=== PATIENT | female | born 1955 ===

== ENCOUNTER 2020-05-30 16:22 | Outpatient (REF) | payer OTHER, SELFPAY ==
--- NOTE | 2020-05-30 16:30 | MM_ITS ---
EXAMINATION: MM SCREENING DIGITAL BREAST TOMOSYNTHESIS, BILATERAL CLINICAL INFORMATION: Screening. Asymptomatic. The lifetime risk of breast cancer based on the Tyrer-Cuzick Model is 4.7%. COMPARISON: Mammography: February 12, 2018 and studies dating back to October 26, 2010 TECHNIQUE: Digital breast tomosynthesis is performed in both the craniocaudal and mediolateral oblique views along with computer-aided detection (CAD). Synthesized 2D images are generated from the tomosynthesis. FINDINGS: The breasts are extremely dense, which lowers the sensitivity of mammography (ACR BI-RADS breast composition Category d). There are no significant masses, abnormal calcifications, or other abnormalities. MM/MM tomosynthesis screening BI IMPRESSION: There are no significant changes from prior study. ASSESSMENT: BI-RADS 1: Negative RECOMMENDATION: Routine annual mammography screening. This patient's information was entered into a reminder system with a target due date for their next mammogram.
== END 2020-05-30 16:23 | disposition home or self-care (01) ==
LOC: HO.MAMMO 16:22
PROVIDERS: Visit Provider Internal Medicine
DX: Z12.31 Encounter for screening mammogram for malignant neoplasm of breast (principal)
CPT/HCPCS: 77063; 77067

== ENCOUNTER 2020-08-23 09:47 | Emergency (ER) | payer OTHER, SELFPAY ==
[2020-08-23 10:18] VITALS: BP 113/58; PULSE 65; RESP 16; TEMP 36.3; O2SAT 99; BMI 27.4
--- NOTE | 2020-08-23 10:40 | XR_ITS ---
EXAMINATION: XR CHEST CLINICAL INFORMATION: Cough x1 week. COMPARISON: Chest 01/25/2019 TECHNIQUE: Frontal view of the chest was obtained. FINDINGS: No significant abnormality is noted involving the heart, lungs, mediastinum, bony thorax or soft tissues. XR/XR chest 1V IMPRESSION: Unremarkable chest examination.
--- NOTE | 2020-08-23 10:53 | ED_ITS ---
HPI - URI/Sore Throat General Chief Complaint: Upper Respiratory Symptoms Stated Complaint: sore throat body aches Time Seen by Provider: 08/23/20 10:21 Source: patient Mode of arrival: ambulatory Limitations: no limitations History of Present Illness HPI Narrative: 65yoF HTN, HLD, [place] Palsy and Depression presenting to the ED c c/o URI symptoms which includes body aches, sore throat and a dry cough for over a week and a half. Reports she was seen by her primary care provider approximately 1 week ago and was tested for COVID was negative. Reports someone she works with has a bronchitis possible pneumonia infection therefore she is concerned about bronchitis versus pneumonia at this time. Denies any fevers, dizziness, headaches, jaw pain, paresthesias, neck pain, neck stiffness, chest pain or shortness of breath, dyspnea on exertion, orthopnea, palpitations, any symptoms or any other symptom complaints or concerns at this time. Denies recent travel. Denies any other sick contacts. Related Data Previous Rx's Medication Instructions Recorded acetaminophen [Tylenol] 650 mg PO Q6H PRN #10 tab 08/23/20 albuterol sulfate 1 inh INHALATION QID PRN #18 g 08/23/20 azithromycin See Rx Instructions .ROUTE 08/23/20 .COMPLEX #6 tab cyclobenzaprine 10 mg PO TID PRN #10 tab 08/23/20 ibuprofen 800 mg PO Q8H PRN #14 tab 08/23/20 prednisone 40 mg PO DAILY 5 Days #10 tab 08/23/20 Allergies Allergy/AdvReac Type Severity Reaction Status Date / Time lisinopril [LISINOPRIL] Allergy Intermediate HIVES Unverified 04/26/20 15:42 Review of Systems Review of Systems: Constitutional : No Fever, + Chills, + fatigue, + Malaise ENT/Mouth : + sore throat, No runny nose Eyes: No Discharge Cardiovascular : No Chest Pain, No SOB Respiratory : + Cough, No Sputum, No Wheezing, No Smoke Exposure, No Dyspnea Gastrointestinal : No Nausea, No Vomiting, No Diarrhea Genitourinary : No irregular bleeding, No Dysuria, No Urinary Frequency, No Hematuria, No Urinary Incontinence, No Urgency, No Flank Pain, Musculoskeletal : + Myalgia Skin : No rash Neuro : No Headache Yes all other systems are reviewed and are negative [facility] Past Medical History Attestation statement: The following information was validated with the patient. Social History Social History Advance Directives: No Advance Directives Information Provided: No Physical Exam Vital Signs: Vital Signs: Last Vital Signs Temp 97.3 F 08/23/20 10:18 Pulse 65 08/23/20 10:18 Resp 16 08/23/20 10:18 BP 113/58 L 08/23/20 10:18 Pulse Ox 99 08/23/20 10:18 Body Mass Index 27.4 vital signs have been reviewed as normal and appeared to be correct. Blood pressure normal. Heart rate normal. Respiration rate normal. Temperature normal. Oxygen saturation normal. Appearance: Alert. Oriented X3. No acute distress. Head: Normal external exam. Normocephalic. Atraumatic. Eyes: PERRLA. EOMI. Conjunctiva and sclera normal. Eyelids normal. ENT: EAC normal. TM's Normal. Pharynx normal. Uvula midline. Moist mucous membranes. No trismus noted. No drooling noted. No muffled voice noted. Neck: Normal inspection. Neck supple. FROM. No adenopathy. No meningeal signs. CVS: Normal heart rate and rhythm. Heart sound normal. No murmurs noted. Pulses normal throughout. Respiratory: No respiratory distress. Painless inspiration. Breath sounds normal. No wheezes/rales/rhonchi noted. Chest nontender. No accessory muscle usage noted or decreased air movement noted. Back: Full range of motion noted. Skin: Skin warm and dry. Normal skin color. Normal skin turgor. No rashes/lesions/lacerations noted. Extremities: Extremities exhibit normal range of motion. Extremities nontender. Neuro: Oriented X 3. No motor deficit. No sensory deficit. Reflexes normal. Course Course Course Narrative: 65-year-old female presenting to the ED with URI like symptoms for the past week and a half. Had a negative COVID swab a week and half ago. Reports persistent sore throat, body aches and a dry cough. Chest x-ray obtained and negative for any acute processes. COVID/RSV/flu negative. Will DC home with antibiotics and symptomatic treatment along with instructions to self isolate and to return if any new or worsening symptoms. Patient understands agrees the plan. MDM - URI/Sore Throat Medical Records Attestation: I reviewed the patient's medical records. Lab Data Labs: Lab Results 08/23/20 Range/Units 10:27 Coronavirus (PCR) NEGATIVE (Negative) Influenza Type A (PCR) NEGATIVE (Negative) Influenza Type B (PCR) NEGATIVE (Negative) RSV RNA Qual (PCR) NEGATIVE (Negative) Imaging Data Chest x-ray: Attestation: I personally reviewed and interpreted this imaging study as follows: Radiologist's impression: FINDINGS: No significant abnormality is noted involving the heart, lungs, mediastinum, bony thorax or soft tissues. XR/XR chest 1V IMPRESSION: Unremarkable chest examination. Discharge Plan Discharge Clinical Impression: Upper respiratory infection Patient Disposition: Home, Self-Care Instructions: Upper Respiratory Infection (ED) Prescriptions: New acetaminophen [Tylenol] 325 mg tablet 650 mg PO Q6H PRN (Reason: fever or pain) Qty: 10 RF: 0 cyclobenzaprine 10 mg tablet 10 mg PO TID PRN (Reason: muscle spasm) Qty: 10 RF: 0 azithromycin 250 mg tablet See Rx Instructions .ROUTE .COMPLEX Qty: 6 RF: 0 ibuprofen 800 mg tablet 800 mg PO Q8H PRN (Reason: pain) Qty: 14 RF: 0 prednisone 20 mg tablet 40 mg PO DAILY 5 Days Qty: 10 RF: 0 albuterol sulfate 90 mcg/actuation HFA aerosol inhaler 1 inh inhalation QID PRN (Reason: shortness of breath or wheezing) Qty: 18 RF: 0 Referrals: Kamilla Reyes MD [Primary Care Provider] - 2 days Stand Alone Forms: Work/School Release Print Language: [place]
[2020-08-23 11:27] LABS: Influenza A PCR NEGATIVE (Negative); Influenza B PCR NEGATIVE (Negative); Resp Syncy Virus RNA Qual PCR NEGATIVE (Negative); SARS COV2 PCR INHOUSE NEGATIVE (Negative)
== END 2020-08-23 11:48 | disposition home or self-care (01) ==
PROVIDERS: Physician Assistant Medical; Emergency Provider Emergency Medicine Emergency Medical Services; PCP Internal Medicine
DX: J06.9 Acute upper respiratory infection, unspecified (principal); M79.10 Myalgia, unspecified site; R05 Cough; Z20.822 Contact with and (suspected) exposure to COVID-19
CPT/HCPCS: 0241U; 36415; 71045; 87071; 87147; 87880; 99283

== ENCOUNTER → 2020-09-20 15:15 | Outpatient (BNVA) | payer OTHER, SELFPAY | PROVIDERS: PCP Internal Medicine; Visit Provider Surgery ==

== ENCOUNTER → 2020-10-02 15:30 | Outpatient (BNVA) | payer OTHER, SELFPAY | PROVIDERS: PCP Internal Medicine; Visit Provider Internal Medicine Gastroenterology ==

== ENCOUNTER 2020-10-16 14:44 | Outpatient (REF) | payer OTHER, SELFPAY ==
--- NOTE | ~2020-10-16 | US_ITS ---
EXAMINATION: ULTRASOUND PELVIS COMPLETE. CLINICAL INFORMATION: Vaginal and rectal pain. COMPARISON: None TECHNIQUE: Transabdominal and transvaginal imaging of pelvis is performed. FINDINGS: The uterus is not visualized, status post hysterectomy. Right ovary measures 1.61 x 1.47 x 1.45 cm and volume 1.80 mL. It appears unremarkable. The left ovary measures 1.32 cm x 0.90 cm x 1.04 cm and volume 0.65 mL. It appears unremarkable. There is no adnexal mass seen. There is small amount of free fluid in the pelvis. US/US transvaginal IMPRESSION: 1. Uterus surgically removed. 2. The ovaries are unremarkable. 3. There is small amount of free fluid in the pelvis.
--- NOTE | ~2020-10-16 | US_ITS ---
EXAMINATION: ULTRASOUND PELVIS COMPLETE. CLINICAL INFORMATION: Vaginal and rectal pain. COMPARISON: None TECHNIQUE: Transabdominal and transvaginal imaging of pelvis is performed. FINDINGS: The uterus is not visualized, status post hysterectomy. Right ovary measures 1.61 x 1.47 x 1.45 cm and volume 1.80 mL. It appears unremarkable. The left ovary measures 1.32 cm x 0.90 cm x 1.04 cm and volume 0.65 mL. It appears unremarkable. There is no adnexal mass seen. There is small amount of free fluid in the pelvis. US/US pelvic complete IMPRESSION: 1. Uterus surgically removed. 2. The ovaries are unremarkable. 3. There is small amount of free fluid in the pelvis.
== END 2020-10-16 14:45 | disposition home or self-care (01) ==
LOC: HO.US 14:44
PROVIDERS: Visit Provider Internal Medicine Gastroenterology
DX: R10.2 Pelvic and perineal pain (principal); K62.89 Other specified diseases of anus and rectum; N81.9 Female genital prolapse, unspecified
CPT/HCPCS: 76830; 76856

== ENCOUNTER 2021-02-05 12:54 | Outpatient (REF) | payer OTHER, SELFPAY ==
[2021-02-06 09:08] LABS: BV Int Neg Control Negative (Negative); BV Int Pos Control Positive (Positive)
== END 2021-02-05 12:55 | disposition home or self-care (01) ==
LOC: HO.LAB 12:54
PROVIDERS: Visit Provider Obstetrics & Gynecology
DX: Z01.411 Encounter for gynecological examination (general) (routine) with abnormal findings (principal); R10.2 Pelvic and perineal pain
CPT/HCPCS: 87480; 87510; 87660

== ENCOUNTER 2021-09-27 15:48 | Outpatient (REF) | payer OTHER, SELFPAY ==
--- NOTE | ~2021-09-27 | MM_ITS ---
EXAMINATION: MM SCREENING DIGITAL BREAST TOMOSYNTHESIS, BILATERAL CLINICAL INFORMATION: Screening. Asymptomatic. The lifetime risk of breast cancer based on the Tyrer-Cuzick Model is 5%. COMPARISON: Mammography: 05/30/2020, 02/12/2018, 12/16/2016 TECHNIQUE: Digital breast tomosynthesis is performed in both the craniocaudal and mediolateral oblique views along with computer-aided detection (CAD). Synthesized 2D images are generated from the tomosynthesis. FINDINGS: The breasts are heterogeneously dense, which may obscure small masses (ACR BI-RADS breast composition Category c). There are no significant masses, abnormal calcifications, or other abnormalities. Parenchymal pattern is similar to prior studies. There is no developing density or architectural abnormality. The axilla and skin contours are unremarkable. No significant changes. MM/MM tomosynthesis screening BI IMPRESSION: No mammographic evidence of malignancy. ASSESSMENT: BI-RADS 1: Negative RECOMMENDATION: Routine annual mammography screening. This patient's information was entered into a reminder system with a target due date for their next mammogram.
== END 2021-09-27 15:49 | disposition home or self-care (01) ==
LOC: HO.MAMMO 15:48
PROVIDERS: PCP Internal Medicine; Visit Provider Internal Medicine
DX: Z12.31 Encounter for screening mammogram for malignant neoplasm of breast (principal)
CPT/HCPCS: 77063; 77067

== ENCOUNTER 2022-10-03 15:15 | Outpatient (REF) | payer OTHER, SELFPAY ==
--- NOTE | ~2022-10-03 | MM_ITS ---
EXAMINATION: MM SCREENING DIGITAL BREAST TOMOSYNTHESIS, BILATERAL CLINICAL INFORMATION: Screening. Asymptomatic. The lifetime risk of breast cancer based on the Tyrer-Cuzick Model is 4%. COMPARISON: Mammography: 09/27/2021, 2920, 02/12/2018, 12/16/2016 TECHNIQUE: Digital breast tomosynthesis is performed in both the craniocaudal and mediolateral oblique views along with computer-aided detection (CAD). Synthesized 2D images are generated from the tomosynthesis. FINDINGS: The breasts are heterogeneously dense, which may obscure small masses (ACR BI-RADS breast composition Category c). No architectural abnormality or developing density or significant change from prior studies. The axilla are unremarkable. There are no significant masses, abnormal calcifications, or other abnormalities. MM/MM tomosynthesis screening BI IMPRESSION: No mammographic evidence of malignancy. ASSESSMENT: BI-RADS 1: Negative RECOMMENDATION: Routine annual mammography screening. This patient's information was entered into a reminder system with a target due date for their next mammogram.
== END 2022-10-03 15:16 | disposition home or self-care (01) ==
LOC: HO.MAMMO 15:15
PROVIDERS: PCP Internal Medicine; Visit Provider Internal Medicine
DX: Z12.31 Encounter for screening mammogram for malignant neoplasm of breast (principal)
CPT/HCPCS: 77063; 77067

== ENCOUNTER 2022-10-26 12:12 | Emergency (ER) | payer OTHER, MEDICARE, SELFPAY ==
--- NOTE | ~2022-10-26 | XR_ITS ---
EXAMINATION: XR SHOULDER, LEFT CLINICAL INFORMATION: Pain in left shoulder COMPARISON: None available. TECHNIQUE: AP external rotation, Grashey, scapular Y, and axillary views of the left shoulder. FINDINGS: The bones are normal. No fracture. Glenohumeral and acromioclavicular alignment is anatomic with normal joint space. There is approximately 0.5 cm calcification in the soft tissues adjacent to the greater tuberosity most likely calcified tendinopathy or supraspinatus tendon. XR/XR shoulder LT min 2V IMPRESSION: Tendinopathy
[2022-10-26 12:24] VITALS: BP 116/56; PULSE 69; RESP 18; TEMP 36.4; O2SAT 97; BMI 27.2
--- NOTE | 2022-10-26 13:11 | ED.EXTPRO ---
HPI - Extremity Problem General Chief complaint: Extremity Injury, Upper Stated complaint: L Shoulder Pain No Injury Time Seen by Provider: 10/26/22 12:26 History of Present Illness HPI Narrative: Patient complains of left shoulder pain for 24 hours after lifting and extending her left arm overhead while playing with the child, no other injury no numbness weakness or tingling no neck pain no chest pain no shortness of breath no other extremity pains Related Data Home Medications Medication Instructions Recorded Confirmed aspirin 81 mg tablet,delayed 81 mg PO DAILY 09/20/20 09/20/20 release atorvastatin 40 mg tablet 40 mg PO DAILY 09/20/20 09/20/20 carvedilol 25 mg tablet 25 mg PO BID 09/20/20 09/20/20 enalapril maleate 20 mg tablet 20 mg PO BID 09/20/20 09/20/20 Previous Rx's Medication Instructions Recorded acetaminophen 325 mg tablet 650 mg PO Q6H PRN fever or pain 08/23/20 (Tylenol) #10 tabs albuterol sulfate 90 mcg/actuation 1 inh inhalation QID PRN shortness 08/23/20 aerosol inhaler of breath or wheezing #18 grams azithromycin 250 mg tablet See Rx Instructions PO .COMPLEX #6 08/23/20 tabs cyclobenzaprine 10 mg tablet 10 mg PO TID PRN muscle spasm #10 08/23/20 tabs ibuprofen 800 mg tablet 800 mg PO Q8H PRN pain #14 tabs 08/23/20 prednisone 20 mg tablet 40 mg PO DAILY rash 5 days #10 tabs 08/23/20 amitriptyline 10 mg tablet 10 mg PO BEDTIME #30 tabs 10/02/20 estradiol 0.01% (0.1 mg/gram) 1 appful vaginal DAILY #42.5 grams 02/06/21 vaginal cream acetaminophen 500 mg capsule 1,000 mg PO .T.i.d. PRN pain #30 10/26/22 caps Allergies Allergy/AdvReac Type Severity Reaction Status Date / Time lisinopril [LISINOPRIL] Allergy Intermediate HIVES Verified 09/20/20 15:23 [facility] Past Medical History Source: nursing notes reviewed Medical History (Updated 10/26/22 @ 13:16 by LORY Maguire) Anal pain Epigastric pain Type II diabetes mellitus Vaginal intraepithelial neoplasia grade 1 Surgical History (Updated 02/05/21 @ 10:21 by Noelle Marlow MD) History of cardiac catheterization History of hysterectomy for benign disease Social History Social History (Updated 10/02/20 @ 15:34 by Mandy Weiner CMA) Household Members: Children Alcohol intake: never Advance Directives: No Advance Directives Information Provided: No Current occupational status: employed Physical Exam Vital Signs: Vital Signs: Last Vital Signs Temp 97.6 F 10/26/22 12:24 Pulse 69 10/26/22 12:24 Resp 18 10/26/22 12:24 BP 116/56 L 10/26/22 12:24 Pulse Ox 97 10/26/22 12:24 O2 Del Method 10/26/22 12:24 BMI result Body Mass Index 27.2 General appearance no acute distress Head is normocephalic atraumatic Neck is supple nontender Chest wall nontender Lung exam is clear to auscultation bilateral Abdomen soft nontender Extremities the left shoulder had limited range of motion and tender now is across the anterior aspect of the shoulder there was no deformity no swelling no redness no ecchymosis Neurovascular intact distal Other extremities normal Skin no rashes Course Course Course Narrative: X-ray did not show any acute fractures or injuries but did show some calcified tendinitis and patient is advised to follow with orthopedist and well-appearing patient is discharged Discharge Plan Discharge Clinical Impression: Left shoulder tendinitis, Sprain of left shoulder Patient Disposition: Home, Self-Care Additional Instructions: Shoulder x-ray did not show any broken bone but it did show some calcified tendinitis which could of been irritated by the injury Follow with orthopedist, they may offer an injection if pain continues Return any concerns Limited use of sling as a few wear it all day for several days you could lose range of motion and muscle tone and it makes it harder to get better Prescriptions: New acetaminophen 500 mg capsule 1,000 mg PO .T.i.d. PRN (Reason: pain) Qty: 30 0RF No Action estradiol 0.01 % (0.1 mg/gram) cream 1 appful vaginal DAILY Qty: 42.5 11RF Rx Instructions: quse daily for 14 days; then use 2-3 times/week acetaminophen [Tylenol] 325 mg tablet 650 mg PO Q6H PRN (Reason: fever or pain) Qty: 10 0RF cyclobenzaprine 10 mg tablet 10 mg PO TID PRN (Reason: muscle spasm) Qty: 10 0RF azithromycin 250 mg tablet See Rx Instructions .ROUTE .COMPLEX Qty: 6 0RF Rx Instructions: take 500 mg today (day 1), then 250 mg for 4 days (days 2-5) ibuprofen 800 mg tablet 800 mg PO Q8H PRN (Reason: pain) Qty: 14 0RF prednisone 20 mg tablet 40 mg PO DAILY 5 Days Qty: 10 0RF albuterol sulfate 90 mcg/actuation HFA aerosol inhaler 1 inh inhalation QID PRN (Reason: shortness of breath or wheezing) Qty: 18 0RF enalapril maleate 20 mg tablet 20 mg PO BID aspirin 81 mg tablet,delayed release (DR/EC) 81 mg PO DAILY atorvastatin 40 mg tablet 40 mg PO DAILY carvedilol 25 mg tablet 25 mg PO BID amitriptyline 10 mg tablet 10 mg PO BEDTIME Qty: 30 2RF Referrals: Michael Butler MD [Physician] - (Left shoulder tendinitis, sprain) Stand Alone Forms: Work/School Release Interventions: ED Discharge Assessment Last Done: 10/26/22 13:33 Discharge Date/Time: 10/26/22 13:34
== END 2022-10-26 13:34 | disposition home or self-care (01) ==
PROVIDERS: Emergency Provider Emergency Medicine; PCP Internal Medicine
DX: M75.32 Calcific tendinitis of left shoulder (principal); M25.512 Pain in left shoulder; Z79.899 Other long term (current) drug therapy
CPT/HCPCS: 73030; 99283

== ENCOUNTER → 2022-11-14 11:40 | Outpatient (BNVA) | payer OTHER, MEDICARE, SELFPAY | PROVIDERS: PCP Internal Medicine; Visit Provider Physician Assistant | DX: Z13.89 Encounter for screening for other disorder (principal) ==

== ENCOUNTER 2023-01-31 07:06 | Emergency (ER) | payer OTHER, MEDICARE, SELFPAY ==
--- NOTE | ~2023-01-31 | CT_ITS ---
EXAMINATION: CT SINUS WITHOUT CONTRAST CLINICAL INFORMATION: Facial/maxillary cellulitis and tenderness. COMPARISON: CT and MR brain dated 01/25/2019. TECHNIQUE: Contiguous axial CT images of the sinuses were obtained without contrast. Sagittal and coronal reformats were provided and reviewed. This CT examination was performed using dose optimization techniques as appropriate, variously including the following: *Automated exposure control *Adjustment of mA and/or kV according to patient size (this includes techniques or standardized protocols for targeted exams where dose is matched to indication/reason for exam; i.e. extremities or head) *Use of iterative reconstruction technique DLP: 97 mGy-cm FINDINGS: Mild asymmetric skin thickening and subcutaneous edema overlying the right maxilla which could represent mild cellulitis. No organized fluid collection or abscess formation. The paranasal sinuses and mastoid air cells are well aerated. The osteomeatal complexes are open. The savage of the frontal, maxillary, ethmoid, and sphenoid sinuses are intact. The nasal septum is unremarkable. There is no fracture identified. The globes and retro-orbital fat are well preserved. The visualized portions of the brain parenchyma are unremarkable. CT/CT sinus wo IV con IMPRESSION: Mild asymmetric skin thickening and subcutaneous edema overlying the right maxilla which could represent mild cellulitis. No organized fluid collection or abscess formation.
[2023-01-31 07:12] VITALS: BP 143/74; PULSE 87; RESP 16; TEMP 36.1; O2SAT 97; BMI 29.0
--- NOTE | 2023-01-31 08:13 | ED_ITS ---
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 About a month ago patient started to have about a butterfly redness on both maxillary area that has been worsening for the past month today patient woke up with burning sensation to the maxillary area with redness and hotness. Related Data Home Medications Medication Instructions Recorded Confirmed aspirin 81 mg tablet,delayed 81 mg PO DAILY 09/20/20 09/20/20 release atorvastatin 40 mg tablet 40 mg PO DAILY 09/20/20 09/20/20 carvedilol 25 mg tablet 25 mg PO BID 09/20/20 09/20/20 enalapril maleate 20 mg tablet 20 mg PO BID 09/20/20 09/20/20 Previous Rx's Medication Instructions Recorded acetaminophen 325 mg tablet 650 mg PO Q6H PRN fever or pain 08/23/20 (Tylenol) #10 tabs albuterol sulfate 90 mcg/actuation 1 inh inhalation QID PRN shortness 08/23/20 aerosol inhaler of breath or wheezing #18 grams azithromycin 250 mg tablet See Rx Instructions PO .COMPLEX #6 08/23/20 tabs cyclobenzaprine 10 mg tablet 10 mg PO TID PRN muscle spasm #10 08/23/20 tabs ibuprofen 800 mg tablet 800 mg PO Q8H PRN pain #14 tabs 08/23/20 prednisone 20 mg tablet 40 mg PO DAILY rash 5 days #10 tabs 08/23/20 amitriptyline 10 mg tablet 10 mg PO BEDTIME #30 tabs 10/02/20 estradiol 0.01% (0.1 mg/gram) 1 appful vaginal DAILY #42.5 grams 02/06/21 vaginal cream acetaminophen 500 mg capsule 1,000 mg PO .T.i.d. PRN pain #30 10/26/22 caps doxycycline hyclate 100 mg tablet 100 mg PO BID #20 tabs 01/31/23 doxycycline hyclate 100 mg tablet 100 mg PO BID #20 tabs 01/31/23 prednisone 20 mg tablet 20 mg PO BID #6 tabs 01/31/23 prednisone 20 mg tablet 20 mg PO BID #6 tabs 01/31/23 Allergies Allergy/AdvReac Type Severity Reaction Status Date / Time lisinopril [LISINOPRIL] Allergy Intermediate HIVES Verified 11/14/22 12:33 Review of Systems Review of Systems: All other systems are reviewed and are negative Constitutional: Reports as per HPI and Reports no additional constitutional complaints Eyes: Reports as per HPI and Reports no additional eye complaints Reports system reviewed and no additional complaints, except as documented Cardiovascular: Reports as per HPI and Reports no additional cardiovascular complaints Respiratory: Reports as per HPI and Reports no additional respiratory complaints Gastrointestinal: Reports as per HPI and Reports no additional gastrointestinal complaints Genitourinary: Reports no additional female genitourinary complaints Musculoskeletal: Reports no additional musculoskeletal complaints Skin/Breast: Reports system reviewed and no additional complaints, except as do cu Psychiatric: Reports no additional psychiatric complaints Endocrine: Reports no additional endocrine complaints Hematologic/Lymphatic: Reports no additional hematologic/lymphatic complaints Allergic/Immunologic: Reports no additional allergic/immunologic complaints Reports system reviewed and no additional complaints, except as documented and Reports Abnormal speech present [facility] Past Medical History Medical History Anal pain Epigastric pain Type II diabetes mellitus Vaginal intraepithelial neoplasia grade 1 Surgical History History of cardiac catheterization History of hysterectomy for benign disease Social History Social History Household Members: Children Alcohol intake: never Smoked in Last 30 Days: No Use of substances other than those prescribed or required for medical reasons: No Advance Directives: No Advance Directives Information Provided: No Current occupational status: employed Physical Exam ED Vital Signs: Vital Signs - 24 hr 01/31/23 07:12 Temperature 97.0 F Pulse Rate 87 Respiratory Rate 16 Blood Pressure 143/74 H Pulse Oximetry 97 Oxygen Delivery Method Room Air BMI result Body Mass Index 29.0 Vital signs have been reviewed as appeared to be correct. Blood pressure normal. Heart rate normal. Respiration rate normal. Temperature normal. Oxygen saturation normal. Appearance: Alert. Oriented X3. No acute distress. Head: Normal external exam. Normocephalic. Atraumatic. Area of redness, hotness, tenderness to touch on both maxillary area, bilateral maxillary sinuses tenderness to percussion, no nasal discharge. Patent airway, no stridor, no throat swelling. Eyes: PERRLA. EOMI. Conjunctiva and sclera normal. Eyelids normal. ENT: TM's Normal. Pharynx normal. Uvula midline. Moist mucous membranes. No trismus noted. No drooling noted. No muffled voice noted. Neck: Normal inspection. Neck supple. FROM. No adenopathy. Thyroid Normal. No meningeal signs. No neck mass noted. CVS: Normal heart rate and rhythm. Heart sound normal. No murmurs noted. Pulses normal throughout. Respiratory: No respiratory distress. Painless inspiration. Breath sounds normal. No wheezes/rales/rhonchi noted. Chest nontender. No accessory muscle usage noted or decreased air movement noted. Abdomen: Soft and nontender. Bowel sounds normal in all 4 quadrants. No distention noted. No organomegaly noted. No visible injury noted. Back: No CVA tenderness. Full range of motion noted. Skin: Skin warm and dry. Normal skin color. Normal skin turgor. No rashe s/lesions/lacerations noted. Extremities: No lower extremity edema. Extremities exhibit normal range of motion. Extremities nontender. Neuro: Oriented X 3. Cranial nerve exam: II-XII are grossly intact No motor deficit. No sensory deficit. Reflexes normal. Course Course Course Narrative: 67-year-old female came in with facial cellulitis, start the patient on doxycycline and few days of prednisone. Medical Decision Making Differential Diagnosis Differential Diagnoses: The differential diagnosis associated with the presentation includes (Facial cellulitis, sinusitis, sepsis.) Admission/Observation Consideration of admission/observation: Escalation of care including admission/observation considered Lab Data [facility] Lab Attestation statement: I reviewed the patient's lab results. 01/31/23 08:33 01/31/23 08:33 Labs: Lab Results 01/31/23 01/31/23 01/31/23 Range/Units 08:33 08:33 08:33 WBC 9.0 (4.8-10.8) X10*3/uL RBC 4.26 (4.20-5.50) X10*6/uL Hgb 12.9 (12.0-16.0) g/dl Hct 38.2 (37.0-47.0) % MCV 89.7 (80.0-98.0) fL MCH 30.3 (27.0-33.0) pg MCHC 33.8 (31.0-35.0) g/dl RDW 11.6 (11.0-16.0) % Plt Count 232 (160-400) X10*3/uL MPV 10.1 (9.4-12.3) fL Immature Gran % (Auto) 0.3 (0.0-0.4) % Neut % (Auto) 50.1 (45-73) % Lymph % (Auto) 35.8 (20-40) % [place] % (Auto) 8.3 (2-11) % Eos % (Auto) 5.2 H (0-4) % Baso % (Auto) 0.3 (0-2) % Lymph # (Auto) 3.2 (1.2-4.9) X10*3/uL [place] # (Auto) 0.8 (0.1-1.2) X10*3/uL Eos # (Auto) 0.5 H (0.0-0.4) X10*3/uL Baso # (Auto) 0.0 (0.0-0.2) X10*3/uL Abs Immat Gran (auto) 0.03 (0.00-0.03) X10*3/uL Absolute Neuts (auto) 4.5 (2.0-8.3) x10*3/uL Absolute Nucleated RBC 0.000 (0.0-0.012) X10*3/uL Nucleated RBC % (auto) 0.0 (0.0-0.2) /100WBC ESR 10 (0-20) MM/HR Sodium 139 (135-145) mmol/L Potassium 4.2 (3.3-5.1) mmol/L Chloride 102 (96-108) mmol/L Carbon Dioxide 30 H (22-29) mmol/L Anion Gap 11 L (12-20) BUN 16 (9-16) mg/dL Creatinine 1.06 (0.5-1.4) mg/dL Estim Creat Clear Calc 49.1 Estimated GFR 52 Random Glucose 349 H (60-115) mg/dL Calcium 9.9 (8.4-10.2) mg/dL C-Reactive Protein < 0.04 (< or = 0.50) mg/dL Independent Interpretation I performed an independent interpretation of an: CT Scan (Face: Possible cellulitis.) Radiology Impression Discussion of test interpretation with radiology: I have reviewed the radiologist's reading. Discharge Plan Discharge Clinical Impression: Cellulitis of face Patient Disposition: Home, Self-Care Instructions: Cellulitis (ED) Prescriptions: New doxycycline hyclate 100 mg tablet 100 mg PO BID Qty: 20 0RF prednisone 20 mg tablet 20 mg PO BID Qty: 6 0RF doxycycline hyclate 100 mg tablet 100 mg PO BID Qty: 20 0RF prednisone 20 mg tablet 20 mg PO BID Qty: 6 0RF No Action estradiol 0.01 % (0.1 mg/gram) cream 1 appful vaginal DAILY Qty: 42.5 11RF Rx Instructions: quse daily for 14 days; then use 2-3 times/week acetaminophen [Tylenol] 325 mg tablet 650 mg PO Q6H PRN (Reason: fever or pain) Qty: 10 0RF cyclobenzaprine 10 mg tablet 10 mg PO TID PRN (Reason: muscle spasm) Qty: 10 0RF azithromycin 250 mg tablet See Rx Instructions .ROUTE .COMPLEX Qty: 6 0RF Rx Instructions: take 500 mg today (day 1), then 250 mg for 4 days (days 2-5) ibuprofen 800 mg tablet 800 mg PO Q8H PRN (Reason: pain) Qty: 14 0RF prednisone 20 mg tablet 40 mg PO DAILY 5 Days Qty: 10 0RF albuterol sulfate 90 mcg/actuation HFA aerosol inhaler 1 inh inhalation QID PRN (Reason: shortness of breath or wheezing) Qty: 18 0RF acetaminophen 500 mg capsule 1,000 mg PO .T.i.d. PRN (Reason: pain) Qty: 30 0RF enalapril maleate 20 mg tablet 20 mg PO BID aspirin 81 mg tablet,delayed release (DR/EC) 81 mg PO DAILY atorvastatin 40 mg tablet 40 mg PO DAILY carvedilol 25 mg tablet 25 mg PO BID amitriptyline 10 mg tablet 10 mg PO BEDTIME Qty: 30 2RF Referrals: Kamilla Reyes MD [Primary Care Provider] -
[2023-01-31 08:40] LABS: MANUAL DIFF FLAG NO
[2023-01-31 08:43] LABS: Basophils Percent Auto 0.3 % (0-2); Eosinophils Absolute Auto 0.5 X10*3/uL (0.0-0.4); Eosinophils Percent Auto 5.2 % (0-4); Hematocrit 38.2 % (37.0-47.0); Hemoglobin 12.9 g/dl (12.0-16.0); Imm Gran Abs Auto 0.03 X10*3/uL (0.00-0.03); Imm Gran Pct Auto 0.3 % (0.0-0.4); Lymphocytes Absolute Auto 3.2 X10*3/uL (1.2-4.9); Lymphocytes Percent Auto 35.8 % (20-40); Mean Corpuscular HGB Conc 33.8 g/dl (31.0-35.0); Mean Corpuscular Hemoglobin 30.3 pg (27.0-33.0); Mean Corpuscular Volume 89.7 fL (80.0-98.0); Mean Platelet Volume 10.1 fL (9.4-12.3); Monocytes Absolute Auto 0.8 X10*3/uL (0.1-1.2); Monocytes Percent Auto 8.3 % (2-11); Neutrophils Absolute Auto 4.5 x10*3/uL (2.0-8.3); Neutrophils Percent Auto 50.1 % (45-73); Platelet Count 232 X10*3/uL (160-400); Red Blood Count 4.26 X10*6/uL (4.20-5.50); Red Cell Distribution Width 11.6 % (11.0-16.0)
[2023-01-31 08:58] LABS: Anion Gap 11 (12-20); Blood Urea Nitrogen 16 mg/dL (9-16); C Reactive Protein < 0.04 mg/dL (< or = 0.50); Calcium 9.9 mg/dL (8.4-10.2); Carbon Dioxide 30 mmol/L (22-29); Chloride 102 mmol/L (96-108); Creatinine Clr Calc Pharmacy 49.1; Estimated Glomerular Filt Rate 52; Glucose Random 349 mg/dL (60-115); Potassium 4.2 mmol/L (3.3-5.1); Sodium 139 mmol/L (135-145)
[2023-01-31 09:28] LABS: Erythrocyte Sedimentation Rate 10 MM/HR (0-20)
[2023-01-31 11:18] VITALS: BP 136/70; PULSE 58; RESP 16; TEMP 37.1; O2SAT 100
[2023-01-31] MEDS: predniSONE 20 MG TABLET 40 MG PO (11:19)
[2023-01-31] MEDS: Doxycycline Monohydrate 100 MG CAPSULE PO (11:19)
== END 2023-01-31 11:42 | disposition home or self-care (01) ==
PROVIDERS: Emergency Provider Emergency Medicine; PCP Internal Medicine
DX: L03.211 Cellulitis of face (principal); E11.9 Type 2 diabetes mellitus without complications; I10 Essential (primary) hypertension; E78.5 Hyperlipidemia, unspecified; Z79.82 Long term (current) use of aspirin; Z79.02 Long term (current) use of antithrombotics/antiplatelets; Z79.899 Other long term (current) drug therapy
CPT/HCPCS: 36415; 70486; 80048; 85025; 85652; 86140; 99284

== ENCOUNTER 2023-02-09 09:51 | Inpatient (IN) | payer OTHER, MEDICARE, SELFPAY ==
[2023-02-09] VITALS (10 sets, daily range): BP systolic 98–155; BP diastolic 54–84; PULSE 55–69; RESP 13–18; TEMP 35.6–36.8; O2SAT 95–98; BMI 27.1; BMI 28.6; BMI 27.3
--- NOTE | 2023-02-09 10:01 | PC.NURSE ---
Pt. 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
--- NOTE | 2023-02-09 10:16 | PC.NURSE ---
Pt. denies severe CP at this time. States that pain got much better after receiving 324 ASA per EMS en route to ED today.
--- NOTE | 2023-02-09 10:53 | ED.CHESTPAIN ---
HPI - Chest Pain General Chief Complaint: Chest Pain Stated Complaint: chest pain Time Seen by Provider: 02/09/23 10:53 Source: patient, EMS, RN notes reviewed and old records reviewed Mode of arrival: EMS History of Present Illness HPI narrative: 67-year-old female with a past medical history of diabetes, CAD s/p stent placement on aspirin/Plavix, presenting to the ED complaining of substernal chest pain radiating to neck since 08:00 with associated lightheadedness/dizziness and fatigue. Admits was doing things around her house when pain began, with mild SOB. Received 325 mg of ASA by EMS with symptomatic improvement. Reports mild discomfort at present. Denies nausea, vomiting, focal weakness, headache, pedal edema MD complaint: chest pain Related Data Home Medications Medication Instructions Recorded Confirmed aspirin 81 mg tablet,delayed 81 mg PO DAILY 09/20/20 02/09/23 release atorvastatin 40 mg tablet 40 mg PO BEDTIME 09/20/20 02/09/23 carvedilol 25 mg tablet 25 mg PO BID 09/20/20 02/09/23 enalapril maleate 20 mg tablet 20 mg PO BID 09/20/20 02/09/23 cholecalciferol (vitamin D3) 25 25 mcg PO DAILY 02/09/23 02/09/23 mcg (1,000 unit) capsule (Vitamin D3) doxycycline hyclate 100 mg tablet 100 mg PO BID 02/09/23 02/09/23 insulin lispro protamine-lispro 40 unit subcut BIDWM 02/09/23 02/09/23 100 unit/mL (75-25) subcutaneous pen (Humalog Mix 75-25 KwikPen) prednisone 20 mg tablet 20 mg PO BID 02/09/23 02/09/23 Previous Rx's Medication Instructions Recorded albuterol sulfate 90 mcg/actuation 1 inh inhalation QID PRN shortness 08/23/20 aerosol inhaler of breath or wheezing #18 grams Allergies Allergy/AdvReac Type Severity Reaction Status Date / Time lisinopril [LISINOPRIL] Allergy Intermediate HIVES Verified 11/14/22 12:33 Review of Systems Review of Systems: Constitutional: No Fever, No Chills, No Fatigue, No Malaise ENT/Mouth: No Ear Pain, No Nasal Congestion, No sore throat, No Rhinorrhea, No Swallowing Difficulty Eyes: No Eye Pain, No Swelling, No Redness, No Vision Changes Cardiovascular: + Chest Pain, + SOB, No Edema, No Palpitations Respiratory: No Cough, No Sputum, No Wheezing, No Dyspnea Gastrointestinal: No Nausea, No Vomiting, No Diarrhea, No Constipation, No Abdominal pain Genitourinary: No Dysuria, No Urinary Frequency, No Flank Pain, No Urinary Flow Changes, No Hesitancy Musculoskeletal: No joint pain, No Myalgias, No Joint Swelling Skin: No Skin Lesions, No rash Neuro: No Weakness, No Numbness, No Paresthesias, No Loss of Consciousness, No Dizziness, No Headache Yes all other systems are reviewed and are negative Constitutional: Constitutional: Reports as per [facility] Past Medical History Attestation statement: The following information was validated with the patient. Source: old records reviewed Medical History (Updated 02/09/23 @ 17:46 by Sulema Munson NP) Anal pain Coronary artery disease Epigastric pain Type II diabetes mellitus Vaginal intraepithelial neoplasia grade 1 Surgical History (Updated 02/09/23 @ 17:46 by Sulema Munson NP) History of cardiac catheterization History of hysterectomy for benign disease Family History Family History (Updated 02/10/23 @ 10:51 by Chuy Mayo MD) Father Diabetes Social History Social History Household Members: Children Household Members Other:: 2 Housing: Apartment Do you presently have visiting nurse or other home services: No Alcohol intake: never Patient Tobacco Use Status: Never used Tobacco Smoked in Last 30 Days: No Use of substances other than those prescribed or required for medical reasons: No Currently Displaying Signs/Symptoms of Drug Intoxication Withdrawal: No Have you been hit, kicked, punched, or otherwise hurt by someone within the past year? If so, by whom?: No Do you feel safe in your current relationship?: No Current Relationship Is there a partner from a previous relationship who is making you feel unsafe now?: No Are you made to feel afraid or neglected: No Advance Directives: No Advance Directives Information Provided: Yes Do you have thoughts of harming others: None Do you have a plan to hurt others: No Plan Recently lost weight without trying: No Eating poorly because of decreased appetite: No Nutrition Risks: No Nutritional Risk Patient : No : No Poor oral hygiene: No Current occupational status: employed Physical Exam Vital Signs: Vital Signs: Last Vital Signs Temp 97.5 F 02/10/23 08:00 Pulse 69 02/10/23 08:00 Resp 20 02/10/23 08:00 BP 99/59 L 02/10/23 08:00 Pulse Ox 96 02/10/23 08:00 O2 Del Method Room Air 02/10/23 08:00 BMI result Body Mass Index 28.6 Const: General: cooperative, healthy appearing and no acute distress Orientation/consciousness: patient oriented x3 Limitations: no limitations HEENT: Head: Yes normal to inspection and Yes atraumatic Ears: hearing grossly normal bilaterally General nose exam: Normal external nose present Face and sinus: Yes normal facial exam Eyes: General: appearance normal, both eyes and all related structures EOM: EOMs intact bilaterally Neck: Neck: Yes normal visual inspection and Yes no meningeal signs Chest: Chest palpation & inspection: normal inspection of the chest Resp: Effort & Inspection: normal respiratory effort and no respiratory distress Auscultation: clear to auscultation bilaterally, no crackles and no wheezes Cardio: Rate: regular rate Heart sounds: S1 normal heart sound present and S2 normal heart sound present GI: Inspection: Yes normal to inspection Palpation (GI): Soft to palpation, nontender, no guarding and not rigid : General: Yes no CVA tenderness Back/Spine/Pelvis: Back: no CVA tenderness Skin: Rashes: no rashes Wounds: no wounds Neuro: General: patient oriented x3, tone normal and no meningeal signs Gait exam (Neuro): Normal gait present Extrem: General: Yes normal to inspection, Yes no pedal edema and Yes no calf tenderness Course Course Course Narrative: -1507--mild leukocytosis of 13.7. BUN acutely elevated to 33. Initial glucose 459 > repeat 258 after 1L IV after XR chest 1V IMPRESSION: No acute cardiopulmonary process. -1515--initial troponin 8.1 > repeat 51.4 >> upon re-evaluation patient denies CP at present, reports symptomatic improvement. Will consult Cardiology, Dr. Braxton >> cardiology recommended heparin and admission. Patient with history of mid LAD stent in 2007 at [facility]. Case discussed with hospitalist, admitted for further management Medications Administered Generic Name Dose Route Start Last Admin Trade Name Freq PRN Reason Stop Dose Admin Aspirin 81 mg 02/10/23 09:00 02/10/23 08:21 Aspirin Enteric Coated 81 Mg Tablet.Dr PO 81 mg DAILY HILDA Administration Atorvastatin Calcium 40 mg 02/09/23 21:00 02/09/23 21:39 Atorvastatin Calcium 40 Mg Tablet PO 40 mg BEDTIME HILDA Administration Carvedilol 25 mg 02/09/23 21:00 02/10/23 08:16 Carvedilol 25 Mg Tablet PO Not Given BID [facility] Protocol Enalapril Maleate 20 mg 02/09/23 21:00 02/09/23 21:39 Enalapril Maleate 10 Mg Tablet PO 20 mg BID HILDA Administration Protocol Heparin Sodium/Sodium Chloride 25,000 unit in 250 mls @ 0 mls/hr 02/09/23 16:00 02/10/23 07:33 Heparin Sodium,Porcine/1/2ns IVCONT 10 units/kg/hr .Q0M HILDA 7.09 mls/hr Titration Protocol Per Protocol Insulin Human Lispro 0 unit 02/09/23 16:30 02/10/23 08:21 Insulin Lispro 100 Unit/Ml 3 Ml Vial SUBCUT 4 unit QIDACHS [facility] Administration Protocol Sodium Chloride 3 ml 02/09/23 16:00 02/10/23 08:22 0.9 % Sodium Chloride Flush 3 Ml Syringe IVFLUSH Not Given QSHIFT [facility] Vitamin D 25 mcg 02/10/23 09:00 02/10/23 08:20 Cholecalciferol (Vitamin D3) 25 Mcg Tablet PO 25 mcg DAILY HILDA Administration Discontinued Medications Generic Name Dose Route Start Last Admin Trade Name Freq PRN Reason Stop Dose Admin Aspirin 81 mg 02/09/23 18:15 02/09/23 18:24 Aspirin 81 Mg Tab.Chew PO 02/09/23 18:16 Not Given ONCE ONE Heparin Sodium (Porcine) 4,000 unit 02/09/23 15:47 02/09/23 16:03 Heparin Sodium,Porcine 5,000 Unit/Ml Vial IVPUSH 02/09/23 15:48 4,000 unit ONCE ONE Administration Sodium Chloride 1,000 mls @ 999 mls/hr 02/09/23 11:15 02/09/23 16:23 Ns IV 02/09/23 12:15 Infused .Q1H1M HILDA Infusion Medical Decision Making Medical Decision Making MDM Narrative: 67-year-old female with a past medical history of diabetes, CAD s/p stent placement on aspirin/Plavix, presenting to the ED complaining of substernal chest pain radiating to neck since 08:00 with associated lightheadedness/dizziness and fatigue. On exam vital signs stable, NAD, nontoxic appearing, reports symptomatic improvement at present. Concern for ACS. Lower suspicion for PE/CHF or DVT. Unlikely dissection Plan: EKG, labs, CXR Please refer to course for remaining clinical decision making, interpretation of labs/imaging results, and discussions with consultants and/or family members. Differential Diagnosis Differential Diagnoses: The differential diagnosis associated with the presentation includes As above Admission/Observation Consideration of admission/observation: Escalation of care including admission/observation considered Consult Healthcare Provider Management of the patient was discussed with: Hospitalist and House Director (Cardiology, Dr. Braxton) Lab Data MDM Lab Attestation statement: I reviewed the patient's lab results. 02/09/23 10:11 02/09/23 10:11 Labs: Lab Results 02/09/23 02/09/23 02/09/23 Range/Units 10:11 10:11 10:11 WBC 13.7 H (4.8-10.8) X10*3/uL RBC 4.45 (4.20-5.50) X10*6/uL Hgb 13.6 (12.0-16.0) g/dl Hct 40.1 (37.0-47.0) % MCV 90.1 (80.0-98.0) fL MCH 30.6 (27.0-33.0) pg MCHC 33.9 (31.0-35.0) g/dl RDW 11.9 (11.0-16.0) % Plt Count 278 (160-400) X10*3/uL MPV 10.7 (9.4-12.3) fL Immature Gran % (Auto) 0.4 (0.0-0.4) % Neut % (Auto) 70.7 (45-73) % Lymph % (Auto) 22.1 (20-40) % [place] % (Auto) 6.6 (2-11) % Eos % (Auto) 0.1 (0-4) % Baso % (Auto) 0.1 (0-2) % Lymph # (Auto) 3.0 (1.2-4.9) X10*3/uL [place] # (Auto) 0.9 (0.1-1.2) X10*3/uL Eos # (Auto) 0.0 (0.0-0.4) X10*3/uL Baso # (Auto) 0.0 (0.0-0.2) X10*3/uL Abs Immat Gran (auto) 0.06 H (0.00-0.03) X10*3/uL Absolute Neuts (auto) 9.7 H (2.0-8.3) x10*3/uL Absolute Nucleated RBC 0.000 (0.0-0.012) X10*3/uL Nucleated RBC % (auto) 0.0 (0.0-0.2) /100WBC Sodium 132 L (135-145) mmol/L Potassium 4.1 (3.3-5.1) mmol/L Chloride 97 (96-108) mmol/L Carbon Dioxide 23 (22-29) mmol/L Anion Gap 16 (12-20) BUN 33 H (9-16) mg/dL Creatinine 1.37 (0.5-1.4) mg/dL Estim Creat Clear Calc 36.7 Estimated GFR 39 POC Glucose (60-115) mg/dL Random Glucose 459 H* (60-115) mg/dL Calcium 10.1 (8.4-10.2) mg/dL Magnesium 1.9 (1.6-2.6) mg/dL Total Bilirubin 1.2 H (0.0-1.0) mg/dL Direct Bilirubin 0.3 (0.0-0.5) mg/dL AST 12 (5-31) U/L ALT 25 (0-31) U/L Alkaline Phosphatase 120 H (39-117) U/L Troponin I High Sens 8.1 (<3.5-17.0) ng/L B-Natriuretic Peptide (<100) pg/mL Total Protein 7.3 (6.5-8.0) g/dL Albumin 3.9 (3.5-5.0) g/dL 02/09/23 02/09/23 02/09/23 Range/Units 10:11 12:21 14:22 WBC (4.8-10.8) X10*3/uL RBC (4.20-5.50) X10*6/uL Hgb (12.0-16.0) g/dl Hct (37.0-47.0) % MCV (80.0-98.0) fL MCH (27.0-33.0) pg MCHC (31.0-35.0) g/dl RDW (11.0-16.0) % Plt Count (160-400) X10*3/uL MPV (9.4-12.3) fL Immature Gran % (Auto) (0.0-0.4) % Neut % (Auto) (45-73) % Lymph % (Auto) (20-40) % [place] % (Auto) (2-11) % Eos % (Auto) (0-4) % Baso % (Auto) (0-2) % Lymph # (Auto) (1.2-4.9) X10*3/uL [place] # (Auto) (0.1-1.2) X10*3/uL Eos # (Auto) (0.0-0.4) X10*3/uL Baso # (Auto) (0.0-0.2) X10*3/uL Abs Immat Gran (auto) (0.00-0.03) X10*3/uL Absolute Neuts (auto) (2.0-8.3) x10*3/uL Absolute Nucleated RBC (0.0-0.012) X10*3/uL Nucleated RBC % (auto) (0.0-0.2) /100WBC Sodium (135-145) mmol/L Potassium (3.3-5.1) mmol/L Chloride (96-108) mmol/L Carbon Dioxide (22-29) mmol/L Anion Gap (12-20) BUN (9-16) mg/dL Creatinine (0.5-1.4) mg/dL Estim Creat Clear Calc Estimated GFR POC Glucose 258 H (60-115) mg/dL Random Glucose (60-115) mg/dL Calcium (8.4-10.2) mg/dL Magnesium (1.6-2.6) mg/dL Total Bilirubin (0.0-1.0) mg/dL Direct Bilirubin (0.0-0.5) mg/dL AST (5-31) U/L ALT (0-31) U/L Alkaline Phosphatase (39-117) U/L Troponin I High Sens 51.4 H* D (<3.5-17.0) ng/L B-Natriuretic Peptide 27 (<100) pg/mL Total Protein (6.5-8.0) g/dL Albumin (3.5-5.0) g/dL Independent Interpretation I performed an independent interpretation of an: EKG (EKG sinus bradycardia at a rate of 59. QRS 100. QTC 407. No significant change when compared to priors) Radiology Impression Discussion of test interpretation with radiology: I have reviewed the radiologist's reading. Independent Historian Clinical information obtained from an independent historian. History obtained from or confirmed by: EMS External Record Review External record reviewed: Inpatient record, Office record, Outpatient record, Prior outpatient labs, Prior outpatient radiology, Primary care record and Outside ED record Tests considered The following testing was considered but not selected: As above Chronic Conditions Patient?s care impacted by: Hypertension Critical Care Time Critical Care Time Critical Care Time: Yes Total Critical Care Time: 45 Attestation: I have personally provided critical care time exclusive of time spent on separately billable procedures. Time includes review of lab data, radiology results, discussion with consultants, and monitoring for potential decompensation. Intervention performed as documented. Discharge Plan Discharge Clinical Impression: Non-ST elevation NC (NSTEMI) Patient Disposition: Admitted As Inpatient Interventions: Admission Worksheet (ED) Last Done: 02/09/23 17:10 Discharge Date/Time: 02/09/23 17:30
[2023-02-09 12:07] LABS: B Type Natriuretic Peptide 27 pg/mL (<100)
--- NOTE | 2023-02-09 15:34 | PM.IMHP ---
History of Present Illness Date of Service: 02/09/23 Chief Complaint: Chest pain 67 year old women with hx of CAD, HTN and DM presenting with chest pain that started this morning. She reported that she was in the kitchen preparing breakfast and she felt a pain in the left side of her chest with no radiation but did report nausea and episode of vomiting as well as shortness of breath lasting about 20 minutes. She does have a history of LAD stent in the 90s but had not had any issues cardiac andre since then. She denied any fever, nausea, recent travel, sick contacts. She reported that from time to time she does get this chest pain usually with activity but is self-limiting in comes and goes. In the ER, CXR showed no consolidation. Initial troponin 51.4 with resolution of chest pain 3. She was started on IV heparin drip in the ED and had one liter of IV fluid. She will be admitted for treatment of NSTEMI. Review of Systems Review of Systems: Denies any recent fever chills or decrease in appetite respiratory denies any shortness of breath coverage production cardiovascular See HPI gastrointestinal denies any dysphagia abdominal pain nausea vomiting or diarrhea genitourinary denies any dysuria frequency or hematuria musculoskeletal denies any joint pain or swelling neuropsych denies any weakness or seizures all other systems reviewed are negative [facility] Medical History (Updated 02/09/23 @ 17:46 by Sulema Munson NP) Anal pain Coronary artery disease Epigastric pain Type II diabetes mellitus Vaginal intraepithelial neoplasia grade 1 Surgical History (Updated 02/09/23 @ 17:46 by Sulema Munson NP) History of cardiac catheterization History of hysterectomy for benign disease Social History Household Members: Children Alcohol intake: never Patient Tobacco Use Status: Never used Tobacco Smoked in Last 30 Days: No Use of substances other than those prescribed or required for medical reasons: No Advance Directives: No Advance Directives Information Provided: Yes Nutrition Risks: No Nutritional Risk Current occupational status: employed Meds Allergies Allergy/AdvReac Type Severity Reaction Status Date / Time lisinopril [LISINOPRIL] Allergy Intermediate HIVES Verified 11/14/22 12:33 Home Medications Medication Instructions Recorded Confirmed Last Taken Type aspirin 81 mg tablet,delayed 81 mg PO DAILY 09/20/20 02/09/23 02/09/23 History release atorvastatin 40 mg tablet 40 mg PO BEDTIME 09/20/20 02/09/23 02/08/23 History carvedilol 25 mg tablet 25 mg PO BID 09/20/20 02/09/23 02/09/23 History enalapril maleate 20 mg tablet 20 mg PO BID 09/20/20 02/09/23 02/09/23 History cholecalciferol (vitamin D3) 25 25 mcg PO DAILY 02/09/23 02/09/23 02/09/23 History mcg (1,000 unit) capsule (Vitamin D3) doxycycline hyclate 100 mg tablet 100 mg PO BID 02/09/23 02/09/23 02/09/23 History insulin lispro protamine-lispro 40 unit subcut BIDWM 02/09/23 02/09/23 02/09/23 History 100 unit/mL (75-25) subcutaneous pen (Humalog Mix 75-25 KwikPen) prednisone 20 mg tablet 20 mg PO BID 02/09/23 02/09/23 02/09/23 History Physical Exam Vital Signs and Narrative: Vital Signs: Last Vital Signs Temp 98.3 F 02/09/23 10:00 Pulse 59 02/09/23 14:58 Resp 13 02/09/23 14:58 BP 155/76 H 02/09/23 14:58 Pulse Ox 95 02/09/23 14:58 O2 Del Method Room Air 02/09/23 14:58 BMI result Body Mass Index 27.1 Appearing in no acute distress head is normocephalic atraumatic eyes pupils are PERRLA sclera is anicteric mouth throat mucous membranes are intact and moist neck is supple no lymphadenopathy, no JVD noted lung sounds are clear to auscultation heart regular rate rhythm, clear S1, S2 positive bowel sounds, abdomen is soft, nontender neuro patient is alert x3, no focal deficits Results Labs 02/09/23 10:11 02/09/23 10:11 Labs: Laboratory Results - last 24 hr 02/09/23 02/09/23 02/09/23 10:11 10:11 10:11 MCV 90.1 MCH 30.6 MCHC 33.9 RDW 11.9 Plt Count 278 MPV 10.7 Immature Gran % (Auto) 0.4 Neut % (Auto) 70.7 Lymph % (Auto) 22.1 Carbon % (Auto) 6.6 Eos % (Auto) 0.1 Baso % (Auto) 0.1 Lymph # (Auto) 3.0 Carbon # (Auto) 0.9 Eos # (Auto) 0.0 Baso # (Auto) 0.0 Abs Immat Gran (auto) 0.06 H Absolute Neuts (auto) 9.7 H Absolute Nucleated RBC 0.000 Nucleated RBC % (auto) 0.0 Anion Gap 16 Estim Creat Clear Calc 36.7 Estimated GFR 39 POC Glucose Random Glucose 459 H* Calcium 10.1 Magnesium 1.9 Total Bilirubin 1.2 H Direct Bilirubin 0.3 AST 12 ALT 25 Alkaline Phosphatase 120 H Troponin I High Sens 8.1 B-Natriuretic Peptide Total Protein 7.3 Albumin 3.9 02/09/23 02/09/23 02/09/23 10:11 12:21 14:22 MCV MCH MCHC RDW Plt Count MPV Immature Gran % (Auto) Neut % (Auto) Lymph % (Auto) Carbon % (Auto) Eos % (Auto) Baso % (Auto) Lymph # (Auto) Carbon # (Auto) Eos # (Auto) Baso # (Auto) Abs Immat Gran (auto) Absolute Neuts (auto) Absolute Nucleated RBC Nucleated RBC % (auto) Anion Gap Estim Creat Clear Calc Estimated GFR POC Glucose 258 H Random Glucose Calcium Magnesium Total Bilirubin Direct Bilirubin AST ALT Alkaline Phosphatase Troponin I High Sens 51.4 H* D B-Natriuretic Peptide 27 Total Protein Albumin Imaging Radiologist's Impressions: Impressions Chest X-Ray 02/09/23 11:20 IMPRESSION: No acute cardiopulmonary process. Assessment and Plan (1) Non-ST elevation AR (NSTEMI): Status: Acute Plan 67 year old women admitted with acute NSTEMI NSTEMI history of coronary artery disease with LAD stent elevated troponin initially with chest pain that resolved Cardiology consultation IV heparin Monitor on telemetry asa, statin, beta-ana 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 Sliding scale, ADA diet HTN stable blood pressure continue home medications Asthma no acute exacerbation albuterol as needed Mental health continue home medications DVT prophylaxis with Heparin Full code 2 inpatient midnights for tx of NSTEMI requiring IV heparin Time Spent With Patient Time: Total time managing care of this patient today ____ minutes. Quality Stroke Does the patient have a stroke diagnosis?: No VTE Prior VTE?: No VTE Risk Level:: Medical - moderate - high VTE Device Contraindication: Treatment Not Indicated VTE Drug Contraindication: N/A - Med Ordered
--- NOTE | 2023-02-09 16:32 | PHA.MEDREC ---
Pharmacy Consult ? Medication Reconciliation Pharmacy has completed the medication reconciliation. 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 Patient is no longer on mirtazipine, sertraline, or farxiga. Patient did endorse allergy to lisinopril but tolerates enalapril. Patient is on her last dose of prednisone and doxycycline. Patient took meds this AM Jay
[2023-02-10 03:46] VITALS: BP 86/50; PULSE 54; RESP 18; TEMP 36; O2SAT 100
[2023-02-10 08:00] VITALS: BP 99/59; PULSE 69; RESP 20; TEMP 36.4; O2SAT 96
--- NOTE | 2023-02-10 10:06 | HO.PM.IMPN ---
Subjective Subjective Date of Service: 02/10/23 Review of Systems Follow up chest pain, NSTEMI no further chest pain oob ambulating Physical Exam Vital Signs: Vital Signs: Last Vital Signs Temp 97.5 F 02/10/23 08:00 Pulse 69 02/10/23 08:00 Resp 20 02/10/23 08:00 BP 99/59 L 02/10/23 08:00 Pulse Ox 96 02/10/23 08:00 O2 Del Method Room Air 02/10/23 08:00 BMI result Body Mass Index 27.3 Appearing in no acute distress lung sounds are clear to auscultation heart regular rate rhythm, clear S1, S2 positive bowel sounds, abdomen is soft, nontender neuro patient is alert x3, no focal deficits Objective Data Active Medications Acetaminophen (Acetaminophen 325 Mg Tablet) 650 mg PO Q6H PRN PRN Reason: Pain, Mild (Pain Scale 1-3) Albuterol Sulfate (Albuterol Sulfate 90 Mcg 8 Gm Inhaler) 1 puff INHALE QID PRN PRN Reason: shortness of breath or wheezing Aspirin (Aspirin Enteric Coated 81 Mg Tablet.Dr) 81 mg PO DAILY [facility] Last Admin: 02/10/23 08:21 Dose: 81 mg Documented By: ALBERTO Atorvastatin Calcium (Atorvastatin Calcium 40 Mg Tablet) 40 mg PO BEDTIME [facility] Last Admin: 02/09/23 21:39 Dose: 40 mg Documented By: CONNIE Carvedilol (Carvedilol 25 Mg Tablet) 25 mg PO BID [facility]; Protocol Last Admin: 02/10/23 08:16 Dose: Not Given Documented By: ALBERTO Non-Admin Reason: Patient Condition Contraindication Dextrose (Dextrose 50 % 25 Gm/50 Ml Syringe) 25 gm IVPUSH Q15M PRN; Protocol PRN Reason: per Hypoglycemia Standing Ord. Enalapril Maleate (Enalapril Maleate 10 Mg Tablet) 20 mg PO BID [facility]; Protocol Last Admin: 02/09/23 21:39 Dose: 20 mg Documented By: CONNIE Glucose (Glucose Gel 15 Gm Gel..Gram.) 15 gm PO Q15M PRN; Protocol PRN Reason: per Hypoglycemia Standing Ord. Heparin Sodium (Porcine) (Heparin Sodium,Porcine 5,000 Unit/Ml Vial) 2,800 unit 40 unit/kg (2800 unit) IVPUSH PROTOCOL BOLUS PRN; Protocol PRN Reason: 40 unit/kg - Heparin Protocol Heparin Sodium (Porcine) (Heparin Sodium,Porcine 5,000 Unit/Ml Vial) 5,700 unit 80 unit/kg (5700 unit) IVPUSH PROTOCOL BOLUS PRN; Protocol PRN Reason: 80 unit/kg - Heparin Protocol Heparin Sodium/Sodium Chloride (Heparin Sodium,Porcine/1/2ns) 25,000 unit in 250 mls @ 0 mls/hr IVCONT .Q0M [facility]; Protocol Last Titration: 02/10/23 07:33 Dose: 10 units/kg/hr, 7.09 mls/hr Documented By: ALBERTO Co-signed By: AURELIA Insulin Human Lispro (Insulin Lispro 100 Unit/Ml 3 Ml Vial) 0 unit SUBCUT QIDACHS [facility]; Protocol Last Admin: 02/10/23 08:21 Dose: 4 unit Documented By: ALBERTO Ondansetron HCl (Ondansetron Hcl 4 Mg/2 Ml Vial) 4 mg IVPUSH Q8H PRN PRN Reason: Nausea and Vomiting Pharmacy Consult (Consult Rx Perform Med Rec) 1 each MISCELLANE ONCE PRN PRN Reason: Consult order Sodium Chloride (0.9 % Sodium Chloride Flush 3 Ml Syringe) 3 ml IVFLUSH QSHIFT [facility] Last Admin: 02/10/23 08:22 Dose: Not Given Documented By: ALBERTO Non-Admin Reason: IV Running Vitamin D (Cholecalciferol (Vitamin D3) 25 Mcg Tablet) 25 mcg PO DAILY [facility] Last Admin: 02/10/23 08:20 Dose: 25 mcg Documented By: ALBERTO Labs 02/10/23 06:21 02/10/23 06:21 Labs: Laboratory Results - last 24 hr 02/09/23 02/09/23 02/09/23 10:11 10:11 10:11 MCV 90.1 MCH 30.6 MCHC 33.9 RDW 11.9 Plt Count 278 MPV 10.7 Immature Gran % (Auto) 0.4 Neut % (Auto) 70.7 Lymph % (Auto) 22.1 [place] % (Auto) 6.6 Eos % (Auto) 0.1 Baso % (Auto) 0.1 Lymph # (Auto) 3.0 [place] # (Auto) 0.9 Eos # (Auto) 0.0 Baso # (Auto) 0.0 Abs Immat Gran (auto) 0.06 H Absolute Neuts (auto) 9.7 H Absolute Nucleated RBC 0.000 Nucleated RBC % (auto) 0.0 Smear Tech's Comments PT INR APTT aPTT Heparin Protocol Anion Gap 16 Estim Creat Clear Calc 36.7 Estimated GFR 39 POC Glucose Random Glucose 459 H* Calcium 10.1 Magnesium 1.9 Total Bilirubin 1.2 H Direct Bilirubin 0.3 AST 12 ALT 25 Alkaline Phosphatase 120 H Troponin I High Sens 8.1 B-Natriuretic Peptide Total Protein 7.3 Albumin 3.9 02/09/23 02/09/23 02/09/23 10:11 12:21 14:22 MCV MCH MCHC RDW Plt Count MPV Immature Gran % (Auto) Neut % (Auto) Lymph % (Auto) [place] % (Auto) Eos % (Auto) Baso % (Auto) Lymph # (Auto) [place] # (Auto) Eos # (Auto) Baso # (Auto) Abs Immat Gran (auto) Absolute Neuts (auto) Absolute Nucleated RBC Nucleated RBC % (auto) Smear Tech's Comments PT INR APTT aPTT Heparin Protocol Anion Gap Estim Creat Clear Calc Estimated GFR POC Glucose 258 H Random Glucose Calcium Magnesium Total Bilirubin Direct Bilirubin AST ALT Alkaline Phosphatase Troponin I High Sens 51.4 H* D B-Natriuretic Peptide 27 Total Protein Albumin 02/09/23 02/09/23 02/09/23 16:44 17:25 17:53 MCV MCH MCHC RDW Plt Count MPV Immature Gran % (Auto) Neut % (Auto) Lymph % (Auto) [place] % (Auto) Eos % (Auto) Baso % (Auto) Lymph # (Auto) [place] # (Auto) Eos # (Auto) Baso # (Auto) Abs Immat Gran (auto) Absolute Neuts (auto) Absolute Nucleated RBC Nucleated RBC % (auto) Smear Tech's Comments PT 12.0 INR 1.0 APTT Cancelled aPTT Heparin Protocol 73.8 Anion Gap Estim Creat Clear Calc Estimated GFR POC Glucose 91 Random Glucose Calcium Magnesium Total Bilirubin Direct Bilirubin AST ALT Alkaline Phosphatase Troponin I High Sens 63.3 H* B-Natriuretic Peptide Total Protein Albumin 02/09/23 02/09/23 02/10/23 19:26 20:05 00:20 MCV MCH MCHC RDW Plt Count MPV Immature Gran % (Auto) Neut % (Auto) Lymph % (Auto) [place] % (Auto) Eos % (Auto) Baso % (Auto) Lymph # (Auto) [place] # (Auto) Eos # (Auto) Baso # (Auto) Abs Immat Gran (auto) Absolute Neuts (auto) Absolute Nucleated RBC Nucleated RBC % (auto) Smear Tech's Comments PT INR APTT aPTT Heparin Protocol 68.5 Anion Gap Estim Creat Clear Calc Estimated GFR POC Glucose 251 H Random Glucose Calcium Magnesium Total Bilirubin Direct Bilirubin AST ALT Alkaline Phosphatase Troponin I High Sens 54.9 H* B-Natriuretic Peptide Total Protein Albumin 02/10/23 02/10/23 02/10/23 06:21 06:21 06:21 MCV 90.7 MCH 30.6 MCHC 33.7 RDW 12.1 Plt Count 234 MPV 10.6 Immature Gran % (Auto) 0.3 Neut % (Auto) 34.2 L Lymph % (Auto) 54.1 H [place] % (Auto) 9.0 Eos % (Auto) 1.9 Baso % (Auto) 0.5 Lymph # (Auto) 6.5 H [place] # (Auto) 1.1 Eos # (Auto) 0.2 Baso # (Auto) 0.1 Abs Immat Gran (auto) 0.04 H Absolute Neuts (auto) 4.1 Absolute Nucleated RBC 0.000 Nucleated RBC % (auto) 0.0 Smear Tech's Comments VERIFIED PT 12.0 INR 1.0 APTT aPTT Heparin Protocol Anion Gap 12 Estim Creat Clear Calc 58.1 Estimated GFR > 60 POC Glucose Random Glucose 189 H Calcium 9.3 D Magnesium Total Bilirubin Direct Bilirubin AST ALT Alkaline Phosphatase Troponin I High Sens B-Natriuretic Peptide Total Protein Albumin 02/10/23 02/10/23 06:21 08:03 MCV MCH MCHC RDW Plt Count MPV Immature Gran % (Auto) Neut % (Auto) Lymph % (Auto) [place] % (Auto) Eos % (Auto) Baso % (Auto) Lymph # (Auto) [place] # (Auto) Eos # (Auto) Baso # (Auto) Abs Immat Gran (auto) Absolute Neuts (auto) Absolute Nucleated RBC Nucleated RBC % (auto) Smear Tech's Comments PT INR APTT aPTT Heparin Protocol 88.9 H D Anion Gap Estim Creat Clear Calc Estimated GFR POC Glucose 215 H Random Glucose Calcium Magnesium Total Bilirubin Direct Bilirubin AST ALT Alkaline Phosphatase Troponin I High Sens B-Natriuretic Peptide Total Protein Albumin Assessment and Plan Plan 67 year old women admitted with acute NSTEMI NSTEMI history of coronary artery disease with LAD stent elevated troponin initially with chest pain that resolved Cardiology consultation IV heparin Monitor on telemetry asa, statin, beta-ana 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 Sliding scale, ADA diet HTN stable blood pressure continue home medications Asthma no acute exacerbation albuterol as needed Mental health continue home medications DVT prophylaxis with Heparin Full code continue hospital stay for tx of NSTEMI requiring IV heparin Time Spent With Patient Time: Total time managing care of this patient today ____ minutes. Quality Stroke Does the patient have a stroke diagnosis?: No VTE Prior VTE?: No VTE Risk Level:: Medical - moderate - high VTE Device Contraindication: Treatment Not Indicated VTE Drug Contraindication: N/A - Med Ordered
--- NOTE | 2023-02-10 10:47 | PM.CNCAR ---
History of Present Illness History of Present Illness Date of Service: 02/10/23 Chief complaint: NSTEMI Narrative: This is a cardiology consultation regarding chest pain and elevated troponins. Patient has history of coronary disease. There is mention of remote LAD stent from s. Otherwise, it does not appear that she regularly follows up with Cardiology. Current admissions because of discomfort in the central chest and that radiated to the left side of the neck and jaw. She also had some nausea and vomiting and additionally, felt short of breath. Few days back, she was in the emergency room for a question of facial cellulitis. Per ER note, put on antibiotics and steroids. Otherwise, she states that she gets chest pains off and on but has not been checked out and a long time. Other comorbidities include type 2 diabetes, hypertension, dyslipidemia. Review of Systems Review of Systems: Yes all other systems are reviewed and are negative Constitutional: Constitutional: Reports as per HPI and Reports no additional constitutional complaints Eyes: Eyes: Reports as per HPI and Denies no additional eye complaints ENT: Denies system reviewed and no additional complaints, except as documented and Reports as per HPI Cardiovascular: Cardiovascular: Reports as per HPI, Reports no additional cardiovascular complaints, Denies acrocyanosis, Denies cool extremities, Reports chest pain, Denies leg edema, Denies lightheadedness, Denies palpitations and Denies dyspnea Respiratory: Respiratory: Reports as per HPI, Denies no additional respiratory complaints and Denies dyspnea Gastrointestinal: Gastrointestinal: Reports as per HPI and Denies no additional gastrointestinal complaints Genitourinary: Genitourinary: Reports as per HPI Musculoskeletal: Musculoskeletal: Reports no additional musculoskeletal complaints and Reports as per HPI Integumentary/Breasts: Skin/Breast: Reports system reviewed and no additional complaints, except as docu Neurologic: Reports system reviewed and no additional complaints, except as documented and Reports as per HPI Psychiatric: Psychiatric: Reports no additional psychiatric complaints and Reports as per HPI Endocrine: Endocrine: Reports no additional endocrine complaints, Reports as per HPI and Denies palpitations Hematologic/Lymphatic: Hematologic/Lymphatic: Reports no additional hematologic/lymphatic complaints and Reports as per HPI Allergic/Immunologic: Allergic/Immunologic: Reports no additional allergic/immunologic complaints and Reports as per HPI [facility] Past Medical History Medical History (Updated 02/09/23 @ 17:46 by Sulema Munson NP) Anal pain Coronary artery disease Epigastric pain Type II diabetes mellitus Vaginal intraepithelial neoplasia grade 1 Family History Family History (Updated 02/10/23 @ 10:51 by Chuy Mayo MD) Father Diabetes Surgical History Surgical History (Updated 02/09/23 @ 17:46 by Sulema Munson NP) History of cardiac catheterization History of hysterectomy for benign disease Social History Social History Household Members: Children Household Members Other:: 2 Housing: Apartment Do you presently have visiting nurse or other home services: No Alcohol intake: never Patient Tobacco Use Status: Never used Tobacco Smoked in Last 30 Days: No Use of substances other than those prescribed or required for medical reasons: No Currently Displaying Signs/Symptoms of Drug Intoxication Withdrawal: No Have you been hit, kicked, punched, or otherwise hurt by someone within the past year? If so, by whom?: No Do you feel safe in your current relationship?: No Current Relationship Is there a partner from a previous relationship who is making you feel unsafe now?: No Are you made to feel afraid or neglected: No Advance Directives: No Advance Directives Information Provided: Yes Do you have thoughts of harming others: None Do you have a plan to hurt others: No Plan Recently lost weight without trying: No Eating poorly because of decreased appetite: No Nutrition Risks: No Nutritional Risk Patient : No : No Poor oral hygiene: No Current occupational status: employed Meds Allergies Allergy/AdvReac Type Severity Reaction Status Date / Time lisinopril [LISINOPRIL] Allergy Intermediate HIVES Verified 11/14/22 12:33 Active Medications: Current Medications Acetaminophen (Acetaminophen 325 Mg Tablet) 650 mg PO Q6H PRN PRN Reason: Pain, Mild (Pain Scale 1-3) Albuterol Sulfate (Albuterol Sulfate 90 Mcg 8 Gm Inhaler) 1 puff INHALE QID PRN PRN Reason: shortness of breath or wheezing Aspirin (Aspirin Enteric Coated 81 Mg Tablet.) 81 mg PO DAILY [facility] Last Admin: 02/10/23 08:21 Dose: 81 mg Atorvastatin Calcium (Atorvastatin Calcium 40 Mg Tablet) 40 mg PO BEDTIME [facility] Last Admin: 02/09/23 21:39 Dose: 40 mg Carvedilol (Carvedilol 25 Mg Tablet) 25 mg PO BID [facility]; Protocol Last Admin: 02/10/23 08:16 Dose: Not Given Dextrose (Dextrose 50 % 25 Gm/50 Ml Syringe) 25 gm IVPUSH Q15M PRN; Protocol PRN Reason: per Hypoglycemia Standing Ord. Enalapril Maleate (Enalapril Maleate 10 Mg Tablet) 20 mg PO BID [facility]; Protocol Last Admin: 02/09/23 21:39 Dose: 20 mg Glucose (Glucose Gel 15 Gm Gel..Gram.) 15 gm PO Q15M PRN; Protocol PRN Reason: per Hypoglycemia Standing Ord. Heparin Sodium (Porcine) (Heparin Sodium,Porcine 5,000 Unit/Ml Vial) 2,800 unit 40 unit/kg (2800 unit) IVPUSH PROTOCOL BOLUS PRN; Protocol PRN Reason: 40 unit/kg - Heparin Protocol Heparin Sodium (Porcine) (Heparin Sodium,Porcine 5,000 Unit/Ml Vial) 5,700 unit 80 unit/kg (5700 unit) IVPUSH PROTOCOL BOLUS PRN; Protocol PRN Reason: 80 unit/kg - Heparin Protocol Heparin Sodium/Sodium Chloride (Heparin Sodium,Porcine/1/2ns) 25,000 unit in 250 mls @ 0 mls/hr IVCONT .Q0M [facility]; Protocol Last Titration: 02/10/23 07:33 Dose: 10 units/kg/hr, 7.09 mls/hr Insulin Human Lispro (Insulin Lispro 100 Unit/Ml 3 Ml Vial) 0 unit SUBCUT QIDACHS [facility]; Protocol Last Admin: 02/10/23 08:21 Dose: 4 unit Ondansetron HCl (Ondansetron Hcl 4 Mg/2 Ml Vial) 4 mg IVPUSH Q8H PRN PRN Reason: Nausea and Vomiting Pharmacy Consult (Consult Rx Perform Med Rec) 1 each MISCELLANE ONCE PRN PRN Reason: Consult order Sodium Chloride (0.9 % Sodium Chloride Flush 3 Ml Syringe) 3 ml IVFLUSH QSHIFT [facility] Last Admin: 02/10/23 08:22 Dose: Not Given Vitamin D (Cholecalciferol (Vitamin D3) 25 Mcg Tablet) 25 mcg PO DAILY [facility] Last Admin: 02/10/23 08:20 Dose: 25 mcg Home Medications Medication Instructions Recorded Confirmed Last Taken Type aspirin 81 mg tablet,delayed 81 mg PO DAILY 09/20/20 02/09/23 02/09/23 History release atorvastatin 40 mg tablet 40 mg PO BEDTIME 09/20/20 02/09/23 02/08/23 History carvedilol 25 mg tablet 25 mg PO BID 09/20/20 02/09/23 02/09/23 History enalapril maleate 20 mg tablet 20 mg PO BID 09/20/20 02/09/23 02/09/23 History cholecalciferol (vitamin D3) 25 25 mcg PO DAILY 02/09/23 02/09/23 02/09/23 History mcg (1,000 unit) capsule (Vitamin D3) doxycycline hyclate 100 mg tablet 100 mg PO BID 02/09/23 02/09/23 02/09/23 History insulin lispro protamine-lispro 40 unit subcut BIDWM 02/09/23 02/09/23 02/09/23 History 100 unit/mL (75-25) subcutaneous pen (Humalog Mix 75-25 KwikPen) prednisone 20 mg tablet 20 mg PO BID 02/09/23 02/09/23 02/09/23 History Physical Exam Vital Signs: Vital Signs: Last Vital Signs Temp 97.5 F 02/10/23 08:00 Pulse 69 02/10/23 08:00 Resp 20 02/10/23 08:00 BP 99/59 L 02/10/23 08:00 Pulse Ox 96 02/10/23 08:00 O2 Del Method Room Air 02/10/23 08:00 BMI result Body Mass Index 27.3 Const: General: comfortable and no acute distress Orientation/consciousness: patient oriented x3 HEENT: Other: Unremarkable Head: Yes normal to inspection Neck: Neck: Yes normal visual inspection Chest: Chest palpation & inspection: normal inspection of the chest Resp: Auscultation: clear to auscultation bilaterally Cardio: Palpation: normal PMI Heart sounds: S1 normal heart sound present, S2 normal heart sound present, no gallops, no murmurs and no rubs GI: Palpation (GI): Soft to palpation Back/Spine/Pelvis: Other: unremarkable Skin: General skin exam: no rashes or lesions noted Neuro: General: patient oriented x3 Extrem: General: Yes normal to inspection Psych: Mental Status: mental status grossly normal Objective Labs and Meds 02/10/23 06:21 02/10/23 06:21 Lab results: Laboratory Results - last 24 hr 02/09/23 02/09/23 02/09/23 10:11 10:11 12:21 WBC RBC Hgb Hct MCV MCH MCHC RDW Plt Count MPV Immature Gran % (Auto) Neut % (Auto) Lymph % (Auto) [place] % (Auto) Eos % (Auto) Baso % (Auto) Lymph # (Auto) [place] # (Auto) Eos # (Auto) Baso # (Auto) Abs Immat Gran (auto) Absolute Neuts (auto) Absolute Nucleated RBC Nucleated RBC % (auto) Smear Tech's Comments PT INR APTT aPTT Heparin Protocol Sodium Potassium Chloride Carbon Dioxide Anion Gap BUN Creatinine Estim Creat Clear Calc Estimated GFR POC Glucose 258 H Random Glucose Calcium Magnesium 1.9 Total Bilirubin 1.2 H Direct Bilirubin 0.3 AST 12 ALT 25 Alkaline Phosphatase 120 H Troponin I High Sens B-Natriuretic Peptide 27 Total Protein 7.3 Albumin 3.9 02/09/23 02/09/23 02/09/23 14:22 16:44 17:25 WBC RBC Hgb Hct MCV MCH MCHC RDW Plt Count MPV Immature Gran % (Auto) Neut % (Auto) Lymph % (Auto) [place] % (Auto) Eos % (Auto) Baso % (Auto) Lymph # (Auto) [place] # (Auto) Eos # (Auto) Baso # (Auto) Abs Immat Gran (auto) Absolute Neuts (auto) Absolute Nucleated RBC Nucleated RBC % (auto) Smear Tech's Comments PT 12.0 INR 1.0 APTT Cancelled aPTT Heparin Protocol 73.8 Sodium Potassium Chloride Carbon Dioxide Anion Gap BUN Creatinine Estim Creat Clear Calc Estimated GFR POC Glucose Random Glucose Calcium Magnesium Total Bilirubin Direct Bilirubin AST ALT Alkaline Phosphatase Troponin I High Sens 51.4 H* D 63.3 H* B-Natriuretic Peptide Total Protein Albumin 02/09/23 02/09/23 02/09/23 17:53 19:26 20:05 WBC RBC Hgb Hct MCV MCH MCHC RDW Plt Count MPV Immature Gran % (Auto) Neut % (Auto) Lymph % (Auto) [place] % (Auto) Eos % (Auto) Baso % (Auto) Lymph # (Auto) [place] # (Auto) Eos # (Auto) Baso # (Auto) Abs Immat Gran (auto) Absolute Neuts (auto) Absolute Nucleated RBC Nucleated RBC % (auto) Smear Tech's Comments PT INR APTT aPTT Heparin Protocol Sodium Potassium Chloride Carbon Dioxide Anion Gap BUN Creatinine Estim Creat Clear Calc Estimated GFR POC Glucose 91 251 H Random Glucose Calcium Magnesium Total Bilirubin Direct Bilirubin AST ALT Alkaline Phosphatase Troponin I High Sens 54.9 H* B-Natriuretic Peptide Total Protein Albumin 02/10/23 02/10/23 02/10/23 00:20 06:21 06:21 WBC 12.0 H RBC 4.51 Hgb 13.8 Hct 40.9 MCV 90.7 MCH 30.6 MCHC 33.7 RDW 12.1 Plt Count 234 MPV 10.6 Immature Gran % (Auto) 0.3 Neut % (Auto) 34.2 L Lymph % (Auto) 54.1 H [place] % (Auto) 9.0 Eos % (Auto) 1.9 Baso % (Auto) 0.5 Lymph # (Auto) 6.5 H [place] # (Auto) 1.1 Eos # (Auto) 0.2 Baso # (Auto) 0.1 Abs Immat Gran (auto) 0.04 H Absolute Neuts (auto) 4.1 Absolute Nucleated RBC 0.000 Nucleated RBC % (auto) 0.0 Smear Tech's Comments VERIFIED PT INR APTT aPTT Heparin Protocol 68.5 Sodium 135 Potassium 3.9 Chloride 104 Carbon Dioxide 23 Anion Gap 12 BUN 21 H Creatinine 0.87 Estim Creat Clear Calc 58.1 Estimated GFR > 60 POC Glucose Random Glucose 189 H Calcium 9.3 D Magnesium Total Bilirubin Direct Bilirubin AST ALT Alkaline Phosphatase Troponin I High Sens B-Natriuretic Peptide Total Protein Albumin 02/10/23 02/10/23 02/10/23 06:21 06:21 08:03 WBC RBC Hgb Hct MCV MCH MCHC RDW Plt Count MPV Immature Gran % (Auto) Neut % (Auto) Lymph % (Auto) [place] % (Auto) Eos % (Auto) Baso % (Auto) Lymph # (Auto) [place] # (Auto) Eos # (Auto) Baso # (Auto) Abs Immat Gran (auto) Absolute Neuts (auto) Absolute Nucleated RBC Nucleated RBC % (auto) Smear Tech's Comments PT 12.0 INR 1.0 APTT aPTT Heparin Protocol 88.9 H D Sodium Potassium Chloride Carbon Dioxide Anion Gap BUN Creatinine Estim Creat Clear Calc Estimated GFR POC Glucose 215 H Random Glucose Calcium Magnesium Total Bilirubin Direct Bilirubin AST ALT Alkaline Phosphatase Troponin I High Sens B-Natriuretic Peptide Total Protein Albumin ECG Interpretation: EKG with sinus rhythm at 59/Min; no significant ST-T changes and otherwise unremarkable. Normal IL and corrected QT. Imaging Radiologist's impression: Impressions Chest X-Ray 02/09/23 11:20 IMPRESSION: No acute cardiopulmonary process. Assessment and Plan (1) Non-ST elevation [place] (NSTEMI): Status: Acute Plan Left-sided chest pain/jaw pain suggestive of angina symptoms. EKG is unremarkable. High sensitivity troponins are 51 followed by 63 followed by 55. Hence there is a small rise and fall but overall low-grade levels. Remote history of LAD stent. Multiple risk factors. Will plan on diagnostic cardiac catheterization. Discussed with patient she is agreeable. Will transfer to [facility]. In the interim, IV heparin, aspirin, beta-blockers and statins. Currently, she is pain-free and stable. d/w Sulema Munson. Time Spent With Patient Time: Total time managing care of this patient today ____ minutes. Procedures Date of Service Date of Service: 02/10/23
[2023-02-10 11:23] VITALS: BP 106/63; PULSE 73; RESP 20; TEMP 36.7; O2SAT 97
--- NOTE | 2023-02-10 11:27 | MHC.CM.PN ---
EMR REVIEWED, PT ADMITTED W/NSTEMI, PER HOSPITALIST PT WILL TXFR TO [facility] FOR CARDIAC CATH, PT REPORTS SHE LIVES ALONE HOWEVER HAS TWO ADULT CHILDREN WHO COME AND GO, PT IS INDEP W/ALL CARE, WORKS/DRIVES AND DENIES USE OF DME/SERVICES. PT CONFIRMS PCP ON FILE IS CORRECT, CVID VACCX2 AND PT WOULD LIKE TO COMPLETE A HCP PRIOR TO DISCHARGING TO [facility], PT NAMES HER SON PARVIN MENDOZA [phone] HER [facility] AND DECLINES TO CHOOSE AN ALTERNATE AT THIS TIME, PT PROVIDED W/EDUCATION, ORIGINAL AND 2 COPIES. PT TXFR TO [facility] FOR CARDIAC CATH VIA [facility]
--- NOTE | 2023-02-10 11:28 | PM.DS ---
DS: Providers Provider Date of Service: 02/10/23 Date of admission: 02/09/23 16:03 Primary care physician: Kamilla Mariano MD Consults: 02/09/23 16:01 Consult to Cardiology Routine Consulting Provider: [facility] Reason for consultation: NSTEMI DS: Diagnosis Discharge Diagnosis (1) Non-ST elevation [place] (NSTEMI): Status: Acute DS: Summary Hospital Course Hospital Course: 67 year old women with hx of CAD, HTN and DM presenting with chest pain that started? this morning.? She reported that she was in the kitchen preparing breakfast and she felt a pain in the left side of her chest with no radiation but did report nausea and episode of vomiting as well as shortness of breath lasting about 20 minutes.? She does have a history of LAD stent in the but had not had any issues cardiac andre since then.? She denied any fever, nausea, recent travel, sick contacts.? She reported that from time to time she does get this chest pain usually with activity but is self-limiting in comes and goes.? In the ER, CXR showed no consolidation. Initial troponin 51.4 with resolution of chest pain 3. She was started on IV heparin drip in the ED and had one liter of IV fluid. She will be admitted for treatment of NSTEMI. NSTEMI history of coronary artery disease with LAD stent elevated troponin initially with chest pain that resolved Cardiology following and recommended transfer to tertiary facility for cardiac catheterization IV heparin, continue on transfer asa, statin, beta-ana 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 treated with Sliding scale, ADA diet mealtime insulin added for better blood sugar control HTN stable blood pressure continue home medications Asthma no acute exacerbation albuterol as needed Mental health continue home medications Time Spent with Patient Time attestation: Total time managing care of this patient today ____ minutes. Discharge coordination time: Greater than 30 minutes Quality: Safe Use of Opioids Does Pt have an Active Cancer Diagnosis on the Problem List?: No Quality: Stroke Does the patient have a stroke diagnosis?: No Physical Exam Vital Signs: Vital Signs: Last Vital Signs Temp 98.1 F 02/10/23 11:23 Pulse 73 02/10/23 11:23 Resp 20 02/10/23 11:23 BP 106/63 02/10/23 11:23 Pulse Ox 97 02/10/23 11:23 O2 Del Method Room Air 02/10/23 11:23 BMI result Body Mass Index 27.3 Appearing in no acute distress head is normocephalic atraumatic eyes pupils are PERRLA sclera is anicteric mouth throat mucous membranes are intact and moist neck is supple no lymphadenopathy, no JVD noted lung sounds are clear to auscultation heart regular rate rhythm, clear S1, S2 positive bowel sounds, abdomen is soft, nontender neuro patient is alert x3, no focal deficits DS: Data Data Completed and Pending Labs on day of discharge: Laboratory Results - last 24 hr 02/09/23 02/09/23 02/09/23 10:11 10:11 12:21 WBC RBC Hgb Hct MCV MCH MCHC RDW Plt Count MPV Immature Gran % (Auto) Neut % (Auto) Lymph % (Auto) [place] % (Auto) Eos % (Auto) Baso % (Auto) Lymph # (Auto) [place] # (Auto) Eos # (Auto) Baso # (Auto) Abs Immat Gran (auto) Absolute Neuts (auto) Absolute Nucleated RBC Nucleated RBC % (auto) Smear Tech's Comments PT INR APTT aPTT Heparin Protocol Sodium Potassium Chloride Carbon Dioxide Anion Gap BUN Creatinine Estim Creat Clear Calc Estimated GFR POC Glucose 258 H Random Glucose Calcium Magnesium 1.9 Total Bilirubin 1.2 H Direct Bilirubin 0.3 AST 12 ALT 25 Alkaline Phosphatase 120 H Troponin I High Sens B-Natriuretic Peptide 27 Total Protein 7.3 Albumin 3.9 02/09/23 02/09/23 02/09/23 14:22 16:44 17:25 WBC RBC Hgb Hct MCV MCH MCHC RDW Plt Count MPV Immature Gran % (Auto) Neut % (Auto) Lymph % (Auto) [place] % (Auto) Eos % (Auto) Baso % (Auto) Lymph # (Auto) [place] # (Auto) Eos # (Auto) Baso # (Auto) Abs Immat Gran (auto) Absolute Neuts (auto) Absolute Nucleated RBC Nucleated RBC % (auto) Smear Tech's Comments PT 12.0 INR 1.0 APTT Cancelled aPTT Heparin Protocol 73.8 Sodium Potassium Chloride Carbon Dioxide Anion Gap BUN Creatinine Estim Creat Clear Calc Estimated GFR POC Glucose Random Glucose Calcium Magnesium Total Bilirubin Direct Bilirubin AST ALT Alkaline Phosphatase Troponin I High Sens 51.4 H* D 63.3 H* B-Natriuretic Peptide Total Protein Albumin 02/09/23 02/09/23 02/09/23 17:53 19:26 20:05 WBC RBC Hgb Hct MCV MCH MCHC RDW Plt Count MPV Immature Gran % (Auto) Neut % (Auto) Lymph % (Auto) [place] % (Auto) Eos % (Auto) Baso % (Auto) Lymph # (Auto) [place] # (Auto) Eos # (Auto) Baso # (Auto) Abs Immat Gran (auto) Absolute Neuts (auto) Absolute Nucleated RBC Nucleated RBC % (auto) Smear Tech's Comments PT INR APTT aPTT Heparin Protocol Sodium Potassium Chloride Carbon Dioxide Anion Gap BUN Creatinine Estim Creat Clear Calc Estimated GFR POC Glucose 91 251 H Random Glucose Calcium Magnesium Total Bilirubin Direct Bilirubin AST ALT Alkaline Phosphatase Troponin I High Sens 54.9 H* B-Natriuretic Peptide Total Protein Albumin 02/10/23 02/10/23 02/10/23 00:20 06:21 06:21 WBC 12.0 H RBC 4.51 Hgb 13.8 Hct 40.9 MCV 90.7 MCH 30.6 MCHC 33.7 RDW 12.1 Plt Count 234 MPV 10.6 Immature Gran % (Auto) 0.3 Neut % (Auto) 34.2 L Lymph % (Auto) 54.1 H [place] % (Auto) 9.0 Eos % (Auto) 1.9 Baso % (Auto) 0.5 Lymph # (Auto) 6.5 H [place] # (Auto) 1.1 Eos # (Auto) 0.2 Baso # (Auto) 0.1 Abs Immat Gran (auto) 0.04 H Absolute Neuts (auto) 4.1 Absolute Nucleated RBC 0.000 Nucleated RBC % (auto) 0.0 Smear Tech's Comments VERIFIED PT INR APTT aPTT Heparin Protocol 68.5 Sodium 135 Potassium 3.9 Chloride 104 Carbon Dioxide 23 Anion Gap 12 BUN 21 H Creatinine 0.87 Estim Creat Clear Calc 58.1 Estimated GFR > 60 POC Glucose Random Glucose 189 H Calcium 9.3 D Magnesium Total Bilirubin Direct Bilirubin AST ALT Alkaline Phosphatase Troponin I High Sens B-Natriuretic Peptide Total Protein Albumin 02/10/23 02/10/23 02/10/23 06:21 06:21 08:03 WBC RBC Hgb Hct MCV MCH MCHC RDW Plt Count MPV Immature Gran % (Auto) Neut % (Auto) Lymph % (Auto) [place] % (Auto) Eos % (Auto) Baso % (Auto) Lymph # (Auto) [place] # (Auto) Eos # (Auto) Baso # (Auto) Abs Immat Gran (auto) Absolute Neuts (auto) Absolute Nucleated RBC Nucleated RBC % (auto) Smear Tech's Comments PT 12.0 INR 1.0 APTT aPTT Heparin Protocol 88.9 H D Sodium Potassium Chloride Carbon Dioxide Anion Gap BUN Creatinine Estim Creat Clear Calc Estimated GFR POC Glucose 215 H Random Glucose Calcium Magnesium Total Bilirubin Direct Bilirubin AST ALT Alkaline Phosphatase Troponin I High Sens B-Natriuretic Peptide Total Protein Albumin Discharge Plan Discharge Anticipated Discharge Date/Time: 02/10/23 11:21 Patient Disposition: Xfer Acute Care Hospital Discharge Diagnosis: NSTEMI Referrals: Kamilla Reyes MD [Primary Care Provider] - 1 Week Discharge Medications: New heparin(porcine) in 0.45% NaCl 25,000 unit/250 mL Parenteral Solution 25,000 unit continuous IV infusion .Q0M Qty: 6000 0RF Continued albuterol sulfate 90 mcg/actuation HFA aerosol inhaler 1 inh inhalation QID PRN (Reason: shortness of breath or wheezing) Qty: 18 0RF insulin lispro protamin-lispro [Humalog Mix 75-25 KwikPen] 100 unit/mL (75-25) insulin pen 40 unit subcut BIDWM cholecalciferol (vitamin D3) [Vitamin D3] 25 mcg (1,000 unit) capsule 25 mcg PO DAILY enalapril maleate 20 mg tablet 20 mg PO BID aspirin 81 mg tablet,delayed release (DR/EC) 81 mg PO DAILY atorvastatin 40 mg tablet 40 mg PO BEDTIME carvedilol 25 mg tablet 25 mg PO BID Discontinued prednisone 20 mg tablet 20 mg PO BID Rx Instructions: only 1 dose due tonight on 02/09 doxycycline hyclate 100 mg tablet 100 mg PO BID Rx Instructions: only 1 dose due tonight on 02/09 Discharge Orders: Discharge Order (Routine); Ordered 02/10/23 Ordered By: Sulema Munson Diet: Advance to usual diet Activity on Discharge: As tolerated Stand Alone Forms: Patient Portal Discharge page Care Plan Goals: Complete resolution if symptoms Health Concerns: NSTEMI Plan of Treatment: Transfer to [facility] for cardiac catheterization IV heparin drip started 02/09/23 Assessment: see discharge summary Discharge Date/Time: 02/10/23 13:18
[2023-02-10 11:36] LABS: Glucose, Whole Blood 356 mg/dL (60-115)
== END 2023-02-10 13:18 | disposition short-term general hospital (02) | DRG 190 ==
LOC: HO.ED 15:38 → HO.EDOVER 16:09 → HO.IMC 16:14
PROVIDERS: Admitting Provider Nurse Practitioner Acute Care; Emergency Provider Emergency Medicine Emergency Medical Services; PCP Internal Medicine; Visit Provider Nurse Practitioner Acute Care
DX: I21.4 Non-ST elevation (NSTEMI) myocardial infarction (principal); E11.9 Type 2 diabetes mellitus without complications; I10 Essential (primary) hypertension; J45.909 Unspecified asthma, uncomplicated; I25.10 Atherosclerotic heart disease of native coronary artery without angina pectoris; Z95.5 Presence of coronary angioplasty implant and graft; Z79.4 Long term (current) use of insulin; Z79.82 Long term (current) use of aspirin; Z79.899 Other long term (current) drug therapy
CPT/HCPCS: 36415; 71045; 80048; 80076; 82947; 83735; 83880; 84484; 85025; 85610; 85730; 93005; 99285; J1643

== ENCOUNTER 2023-05-20 08:42 | Outpatient (AMB) | payer OTHER, SELFPAY ==
--- NOTE | 2023-05-20 09:06 | MHC.OFFVIS ---
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 Intake Note: NPV Sheep Rancher Required: No Sheep Rancher Name: Stan [id number] Accompanied by: Self / Same As Patient Allergies lisinopril [LISINOPRIL] Allergy (Intermediate, Verified 05/20/23 09:09) HIVES Medication List - Last Reviewed 05/20/23 by Noelle Koenig albuterol sulfate 90 mcg/actuation 1 inh inhalation QID PRN aspirin 81 mg PO DAILY atorvastatin 40 mg PO BEDTIME carvedilol 25 mg PO BID cholecalciferol (vitamin D3) (Vitamin D3) 25 mcg PO DAILY dapagliflozin propanediol (Farxiga) 10 mg PO DAILY enalapril maleate 2.5 mg PO DAILY insulin lispro protamin-lispro 100 unit/mL (75-25) (Humalog Mix 75-25 KwikPen) 40 units subcut BIDWM HPI HPI Comments History of Present Illness Details Ravinder returns for follow-up. In February of this year, she was seen in consultation regarding chest pain and elevated troponins. Remote history of LAD stenting for 90 90s. No regular follow-up with Cardiology. She was admitted to the hospital for central chest pain with radiation to the left side of the neck and jaw. Elevated troponins at that time. Then sent to [facility]. Underwent cardiac catheterization. Noted to have patent LAD stent. She had severe ostial diagonal stenosis with mild progression compared to 2007 but no interventions performed. Discharged on medical therapy. It seems that her blood pressure was low and hence some of meds were cut back and and enalapril was actually stopped. She was on as much as enalapril 20 mg b.i.d.. For the last day or so, she states she has been having left-sided arm pain as well as pain in the back of the neck. Overall, does not feel good. Difficult to say if it is angina or something like musculoskeletal. Blood pressure is quite high in the clinic. [facility] Medical History (Updated 05/20/23 @ 09:48 by Chuy Mayo MD) Atherosclerotic cardiovascular disease Coronary artery disease Type II diabetes mellitus Vaginal intraepithelial neoplasia grade 1 Epigastric pain Anal pain Surgical History History of cardiac catheterization History of hysterectomy for benign disease Family History Father Diabetes Social History Household Members: Children Household Members Other:: 2 Housing: Apartment Do you presently have visiting nurse or other home services: No Alcohol intake: never Patient Tobacco Use Status: Never used Tobacco service: No Current occupational status: employed Female Reproductive History Menstrual Date of menopause: 05/10/01 Review of Systems Const Denies chills, Denies daytime sleepiness, Denies fatigue, Denies fever(s), Denies frequent falls, Denies night sweats, Denies snoring, Denies weakness, Denies weight gain and Denies weight loss Eyes Denies loss of vision ENT Denies dizziness and Denies hearing loss Card Denies chest pain, Denies chest pain with activity, Denies syncope, Denies rapid heart rate, Denies edema, Denies claudication, Denies leg edema, Denies lightheadedness, Denies palpitations, Denies dyspnea, Denies dyspnea on exertion and Denies orthopnea Resp Denies cough, Denies excessive phlegm production, Denies dyspnea, Denies dyspnea on exertion, Denies snoring and Denies wheezing GI Denies abdominal pain, Denies hematochezia, Denies change in bowel habits, Denies change in stool character, Denies heartburn, Denies nausea and Denies vomiting Denies hematuria, Denies urinary frequency and Denies dysuria Musc Denies arthralgias, Denies muscle weakness, Denies numbness and Denies tingling Skin/Breast Denies nail changes and Denies rash Neuro Denies Abnormal speech present, Denies dizziness, Denies syncope, Denies frequent falls, Denies loss of vision, Denies memory loss, Denies numbness, Denies tingling and Denies weakness Psych Denies depression and Denies memory loss Endo Denies fatigue and Denies palpitations Aller/Immun Denies wheezing Physical Exam Vital Signs: Last Vital Signs Pulse 94 05/20/23 09:08 BP 180/90 H 05/20/23 09:08 BMI result Body Mass Index 27.3 Const General: comfortable and no acute distress Orientation/consciousness: patient oriented x3 HEENT Other: Unremarkable Head: Yes normal to inspection Neck Neck: Yes normal visual inspection Chest Chest palpation & inspection: normal inspection of the chest Resp Auscultation: clear to auscultation bilaterally Cardio Palpation: normal PMI Heart sounds: S1 normal heart sound present, S2 normal heart sound present, no gallops, no murmurs and no rubs GI Palpation (GI): Soft to palpation Back/Spine/Pelvis Other: unremarkable Skin General skin exam: no rashes or lesions noted Neuro General: patient oriented x3 Speech: No Abnormal speech present Extrem General: Yes normal to inspection Psych Mental Status: mental status grossly normal Office Procedures EKG Details: EKG with sinus rhythm at 97/Min; no significant ST-T changes and otherwise [place]remark[place] [id number], Complete Assessment & Plan Assessment & Plan (1) Atherosclerotic cardiovascular disease: Code(s): I25.10 - Atherosclerotic heart disease of [place] coronary artery without angina pectoris (2) Non-ST elevation [place] (NSTEMI): Code(s): I21.4 - Non-ST elevation (NSTEMI) myocardial infarction (3) Type II diabetes mellitus: Code(s): E11.9 - Type 2 diabetes mellitus without complications Qualifiers: 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 long term acute care registered nurse insulin use: without residential use 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 complication status: with other specified complication Qualified Code(s): E11.69 - Type 2 diabetes mellitus with other specified complication (4) Hypertension: Code(s): I10 - Essential (primary) hypertension Qualifiers: Hypertension type: primary hypertension Qualified Code(s): I10 - Essential (primary) hypertension (5) Hyperlipidemia: Code(s): E78.5 - Hyperlipidemia, unspecified Qualifiers: Hyperlipidemia type: unspecified Qualified Code(s): E78.5 - Hyperlipidemia, unspecified (6) Precordial chest pain: Code(s): R07.2 - Precordial pain Plan Cardiac catheterization data reviewed from 12 February 2023. Previous stent in mid LAD was patent. Ostial 1st diagonal 70% stenosis. Mid LAD had 50% stenosis. Distal circumflex had 40% stenosis. RCA with minimal irregularities. No interventions performed. At that time, blood pressure was apparently low and hence enalapril was stopped and she was on enalapril 20 mg b.i.d.. Current episode of neck pain and left arm pain that she still has-not clear if it is anginal or musculoskeletal. EKG seems unremarkable. Will send to the emergency room for further evaluation. Will need high sensitivity troponins checked now and then if negative, few hours later. Otherwise, blood pressure will need to be optimized most likely will need to put her back on the enalapril. Echocardiogram for LVEF/wall motion. Patient taken by wheelchair to the emergency room. Orders: Orders CA echo transthoracic complete Today I25.10 - Atherosclerotic heart disease of [place] coronary artery without angina pectoris, R07.2 - Precordial pain Troponin-I High Sensitivity Today R07.2 - Precordial pain Medications: New nitroglycerin do not exceed 3 doses per episode 0.4 mg sublingual Q5M PRN 30 tabs 5RF chest pain R07.2 - Precordial pain Coding Level of Care Code Est Pt Level 4 (01885) Diagnoses Atherosclerotic cardiovascular disease I25.10 Non-ST elevation [place] (NSTEMI) I21.4 Type 2 diabetes mellitus with other specified complication, without long-term current use of insulin E11.69 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 long term acute care registered nurse insulin use: without residential use 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 complication status: with other specified complication Primary hypertension I10 Hypertension type: primary hypertension Hyperlipidemia, unspecified hyperlipidemia type E78.5 Hyperlipidemia type: unspecified Precordial chest pain R07.2 CPT Codes EKG - CPT: 06930-[id number], Complete ([id number])
[2023-05-20 09:08] VITALS: BP 180/90; PULSE 94; BMI 27.3
== END 2023-05-20 09:39 | disposition home or self-care (01) ==
PROVIDERS: PCP Internal Medicine; Visit Provider Internal Medicine
DX: I25.10 Atherosclerotic heart disease of native coronary artery without angina pectoris (principal); I21.4 Non-ST elevation (NSTEMI) myocardial infarction; E11.69 Type 2 diabetes mellitus with other specified complication; I10 Essential (primary) hypertension; E78.5 Hyperlipidemia, unspecified; R07.2 Precordial pain
CPT/HCPCS: 93010; 99214

== ENCOUNTER → 2023-05-20 08:42 | Outpatient (BNVA) | payer OTHER, SELFPAY | PROVIDERS: PCP Internal Medicine; Visit Provider Internal Medicine ==

== ENCOUNTER 2023-05-20 09:43 | Emergency (ER) | payer OTHER, SELFPAY ==
[2023-05-20 10:03] VITALS: BP 192/108; PULSE 93; RESP 18; TEMP 36.6; O2SAT 97; BMI 26.9
[2023-05-20 10:17] LABS: Anion Gap 15 (12-20); Blood Urea Nitrogen 30 mg/dL (9-16); Calcium 10.8 mg/dL (8.4-10.2); Carbon Dioxide 24 mmol/L (22-29); Chloride 104 mmol/L (96-108); Creatinine Clr Calc Pharmacy 51.8; Estimated Glomerular Filt Rate 58; Glucose Random 237 mg/dL (60-115); Potassium 3.9 mmol/L (3.3-5.1); Sodium 139 mmol/L (135-145)
--- NOTE | 2023-05-20 11:31 | ED.CHESTPAIN ---
HPI - Chest Pain General Chief Complaint: Chest Pain Stated Complaint: Chest Pain Dizzy Weak Time Seen by Provider: 05/20/23 10:57 History of Present Illness HPI narrative: Patient is a 67-year-old female with a history of diabetes, hypertension, hypercholesterolemia presents today with having left-sided chest pain since yesterday at 20:00. The pain is dull. Associated with mild shortness of breath there is no diaphoresis. No specific trigger. Patient was seen by Cardiology this morning sent down to the emergency department for further evaluation. She is not compliant with her medications she had ran out of her meds. Had a cardiac catheterization done in February of this year at [facility]. Related Data Home Medications Medication Instructions Recorded Confirmed aspirin 81 mg tablet,delayed 81 mg PO DAILY 09/20/20 05/20/23 release atorvastatin 40 mg tablet 40 mg PO BEDTIME 09/20/20 05/20/23 carvedilol 25 mg tablet 25 mg PO BID 09/20/20 05/20/23 cholecalciferol (vitamin D3) 25 25 mcg PO DAILY 02/09/23 05/20/23 mcg (1,000 unit) capsule (Vitamin D3) insulin lispro protamine-lispro 40 unit subcut BIDWM 02/09/23 05/20/23 100 unit/mL (75-25) subcutaneous pen (Humalog Mix 75-25 KwikPen) dapagliflozin propanediol 10 mg 10 mg PO DAILY 05/20/23 05/20/23 tablet (Farxiga) enalapril maleate 2.5 mg tablet 2.5 mg PO DAILY 05/20/23 Previous Rx's Medication Instructions Recorded albuterol sulfate 90 mcg/actuation 1 inh inhalation QID PRN shortness 08/23/20 aerosol inhaler of breath or wheezing #18 grams amlodipine 10 mg tablet 10 mg PO DAILY #90 tabs 05/20/23 nitroglycerin 0.4 mg sublingual 0.4 mg sublingual Q5M PRN chest 05/20/23 tablet pain #30 tabs Allergies Allergy/AdvReac Type Severity Reaction Status Date / Time lisinopril [LISINOPRIL] Allergy Intermediate HIVES Verified 05/20/23 10:03 Review of Systems Review of Systems: Positive chest pain PMFSH Past Medical History Medical History Atherosclerotic cardiovascular disease Coronary artery disease Type II diabetes mellitus Vaginal intraepithelial neoplasia grade 1 Epigastric pain Anal pain Surgical History History of cardiac catheterization History of hysterectomy for benign disease Family History Family History Father Diabetes Social History Social History Household Members: Children Household Members Other:: 2 Housing: Apartment Do you presently have visiting nurse or other home services: No Alcohol intake: never Patient Tobacco Use Status: Never used Tobacco Smoked in Last 30 Days: No Use of substances other than those prescribed or required for medical reasons: No Advance Directives: No service: No Current occupational status: employed Physical Exam Vital Signs: Vital Signs: Last Vital Signs Temp 98 F 05/20/23 10:03 Pulse 74 05/20/23 12:35 Resp 19 05/20/23 12:35 BP 124/72 05/20/23 12:35 Pulse Ox 99 05/20/23 12:35 O2 Del Method Room Air 05/20/23 12:35 BMI result Body Mass Index 26.9 Appearance: Alert. Oriented X3. No acute distress. Eyes: Pupils equal, round and reactive to light. ENT: Pharynx normal. Neck: Normal inspection. Neck supple. No lymph nodes noted. No crepitus CVS: Normal heart rate and rhythm. Pulses normal. Normal S1 and S2 Respiratory: No respiratory distress. Breath sounds normal. No Wheezing. No rales Abdomen: Soft and nontender. No rigidity. No distention. good BS x4 Skin: Skin warm and dry. Normal skin color. Normal skin turgor. Extremities: No lower extremity edema. Neurovascular intact to all extremities. No Lacerations. No Rash Neuro: Oriented X 3. No motor deficit. No sensory deficit. Moving all extermities. No slurred speech Medications Administered Generic Name Dose Route Start Last Admin Trade Name Freq PRN Reason Stop Dose Admin Nitroglycerin 0.4 mg 05/20/23 11:27 05/20/23 12:35 Nitroglycerin 0.4 Mg Tab.Subl SUBLINGUAL 0.4 mg [id number] PRN Administration Chest Pain Discontinued Medications Generic Name Dose Route Start Last Admin Trade Name Freq PRN Reason Stop Dose Admin Amlodipine Besylate 2.5 mg 05/20/23 11:29 05/20/23 11:40 Amlodipine Besylate 2.5 Mg Tablet PO 05/20/23 11:30 2.5 mg ONCE ONE Administration Protocol Carvedilol 25 mg 05/20/23 11:21 05/20/23 11:41 Carvedilol 25 Mg Tablet PO 05/20/23 11:22 25 mg ONCE ONE Administration Protocol Medical Decision Making Medical Decision Making [facility] Narrative: Patient has a history diabetes, hypertension, hypercholesterolemia presented today 9 compliant with her medication having chest pain the chest pain is on the left chest close to the arm. Seen by Cardiology noted to have elevated blood pressure. The pain is sharp not associated with diaphoresis patient denies any history of blood clots. No history of leg swelling. Had a cardiac CT done in February of this year. Was seen by Cardiology earlier today. The note from cardiology revealed Cardiac catheterization data reviewed from 12 February 2023. Previous stent in mid LAD was patent. Ostial 1st diagonal 70% stenosis. Mid LAD had 50% stenosis. Distal circumflex had 40% stenosis. RCA with minimal irregularities. No interventions performed. Will get 2 sets of cardiac enzyme. The 1st set the enzyme was negative. Patient to receive her normal blood pressure medication including called nadolol and amlodipine. Will monitor very carefully. Two sets of enzymes are negative. Patient's case discussed with Cardiology. [place] comfortable with discharge we will closely follow up with patient on an outpatient basis. Chest pain has resolved. In stable condition. Differential Diagnosis Differential Diagnoses: The differential diagnosis associated with the presentation includes ACS, pneumonia, pneumothorax, dissection Admission/Observation Consideration of admission/observation: Escalation of care including admission/observation considered Consult Healthcare Provider Management of the patient was discussed with: Char Conveyor Tender Cellar (Stock Preparation Supervisor) Lab Data 05/20/23 09:59 05/20/23 09:59 Labs: Lab Results 05/20/23 05/20/23 Range/Units 09:59 12:46 WBC 13.3 H (4.8-10.8) X10*3/uL RBC 5.56 H D (4.20-5.50) X10*6/uL Hgb 16.8 H D (12.0-16.0) g/dl Hct 49.8 H D (37.0-47.0) % MCV 89.6 (80.0-98.0) fL MCH 30.2 (27.0-33.0) pg MCHC 33.7 (31.0-35.0) g/dl RDW 11.9 (11.0-16.0) % Plt Count 281 (160-400) X10*3/uL MPV 10.1 (9.4-12.3) fL Immature Gran % (Auto) 0.3 (0.0-0.4) % Neut % (Auto) 68.6 (45-73) % Lymph % (Auto) 22.8 (20-40) % [place] % (Auto) 6.4 (2-11) % Eos % (Auto) 1.5 (0-4) % Baso % (Auto) 0.4 (0-2) % Lymph # (Auto) 3.0 (1.2-4.9) X10*3/uL [place] # (Auto) 0.9 (0.1-1.2) X10*3/uL Eos # (Auto) 0.2 (0.0-0.4) X10*3/uL Baso # (Auto) 0.1 (0.0-0.2) X10*3/uL Abs Immat Gran (auto) 0.04 H (0.00-0.03) X10*3/uL Absolute Neuts (auto) 9.2 H (2.0-8.3) x10*3/uL Absolute Nucleated RBC 0.000 (0.0-0.012) X10*3/uL Nucleated RBC % (auto) 0.0 (0.0-0.2) /100WBC Sodium 139 (135-145) mmol/L Potassium 3.9 (3.3-5.1) mmol/L Chloride 104 (96-108) mmol/L Carbon Dioxide 24 (22-29) mmol/L Anion Gap 15 (12-20) BUN 30 H (9-16) mg/dL Creatinine 0.97 (0.5-1.4) mg/dL Estim Creat Clear Calc 51.8 Estimated GFR 58 Random Glucose 237 H (60-115) mg/dL Calcium 10.8 H D (8.4-10.2) mg/dL Troponin I High Sens 8.5 D 9.5 (<3.5-17.0) ng/L B-Natriuretic Peptide 23 (<100) pg/mL Independent Interpretation I performed an independent interpretation of an: EKG (My interpretation the patient's EKG showed a sinus rhythm heart rate is 60 NM QRS QTC within normal limits is no acute ST segment elevation noted.) and Plain X-Ray (Negative for pneumonia no pneumothorax) Radiology Impression Discussion of test interpretation with radiology: I have reviewed the radiologist's reading. Discharge Plan Discharge Clinical Impression: Chest pain Patient Disposition: Home, Self-Care Instructions: Chest Pain (ED) Prescriptions: No Action albuterol sulfate 90 mcg/actuation HFA aerosol inhaler 1 inh inhalation QID PRN (Reason: shortness of breath or wheezing) Qty: 18 0RF insulin lispro protamin-lispro [Humalog Mix 75-25 KwikPen] 100 unit/mL (75-25) insulin pen 40 unit subcut BIDWM cholecalciferol (vitamin D3) [Vitamin D3] 25 mcg (1,000 unit) capsule 25 mcg PO DAILY aspirin 81 mg tablet,delayed release (DR/EC) 81 mg PO DAILY atorvastatin 40 mg tablet 40 mg PO BEDTIME carvedilol 25 mg tablet 25 mg PO BID Farxiga 10 mg tablet 10 mg PO DAILY enalapril maleate 2.5 mg tablet 2.5 mg PO DAILY nitroglycerin 0.4 mg tablet, sublingual 0.4 mg sublingual Q5M PRN (Reason: chest pain) Qty: 30 5RF Rx Instructions: do not exceed 3 doses per episode amlodipine 10 mg tablet 10 mg PO DAILY Qty: 90 3RF Referrals: Chuy Mayo MD [Physician] - 05/22/23
[2023-05-20 11:41] VITALS: BP 153/87; PULSE 85; RESP 13; O2SAT 99
[2023-05-20 11:42] VITALS: PULSE 87
--- NOTE | 2023-05-20 11:48 | PC.NURSE ---
pt a&ox4, hypertensive, other vss, reporting left arm/cp starting yesterday evening. cafeteria monitor applied, NSR. medicated per OCT. no new orders at this time.
[2023-05-20 12:35] VITALS: BP 124/72; PULSE 74; RESP 19; O2SAT 99
--- NOTE | 2023-05-20 12:37 | PC.NURSE ---
pt resting quietly, lights dimmed, vss, medicated per OCT for 03/19 cp.
== END 2023-05-20 14:20 | disposition home or self-care (01) ==
PROVIDERS: Emergency Provider Emergency Medicine Emergency Medical Services; PCP Internal Medicine
DX: R07.89 Other chest pain (principal); R06.02 Shortness of breath; R42 Dizziness and giddiness; E11.9 Type 2 diabetes mellitus without complications; I25.10 Atherosclerotic heart disease of native coronary artery without angina pectoris; Z79.899 Other long term (current) drug therapy; Z79.4 Long term (current) use of insulin
CPT/HCPCS: 36415; 71046; 80048; 83880; 84484; 85025; 93005; 99283; 99284

== ENCOUNTER → 2023-05-26 07:46 | Outpatient (REF) | payer OTHER, SELFPAY ==
--- NOTE | 2023-05-26 07:49 | CA_ITS ---
Transthoracic Echocardiogram Patient (Last, First, Middle): Gabriella Granados, Gender: Female Date of : 1955 Age: 67 Procedure Date: 05/26/2023 Procedure Type: Transthoracic Echocardiogram Location: OP Height: 157.48 cm Weight: 67.59 kg BSA: 1.69 m2 Heart Rate: bpm BP: 126 / 80 mmHg Beam Sealer: BLAIR/MARCO ANTONIO Referring MD: Chuy Mayo MD Symptoms: I25.10 - Atherosclerotic heart disease of [place] coronary artery without... Study Quality: Adequate with contrast ECG Rhythm: Sinus Conclusions: - The left ventricular systolic function is normal. The calculated ejection fraction is 61% by biplane method. - No obvious valvular pathology seen on this study. Findings Procedure Information Contrast agent, definity, is being given per protocol without apparent complications. Left Ventricle Normal left ventricular cavity size. There is normal left ventricular wall thickness. The left ventricular systolic function is normal. The calculated ejection fraction is 61% by biplane method. There is no evidence of regional wall motion abnormalities. Diastolic function is normal for age. Right Ventricle Normal right ventricular cavity size and systolic function. Atria Both atria are normal in size. Aortic Valve There is a normal trileaflet aortic valve. There is no aortic valve stenosis. There is no aortic valve regurgitation. Mitral Valve The mitral valve appears normal. There is trace mitral valve regurgitation. There is no mitral valve stenosis. Pulmonic Valve The pulmonic valve is likely normal. Tricuspid Valve Normal tricuspid valve structure. There is mild tricuspid valve regurgitation. There is no evidence of pulmonary hypertension. Great Vessels The asc aorta is normal in size. Venous The inferior vena cava is normal in size and collapses greater than 50% with inspiration. Pericardium/Pleural There is no evidence of pericardial effusion. Prior Study Comparison No prior study available for comparison. Recommendations, Care & Conclusions No obvious valvular pathology seen on this study. Measurements 2D Linear Measurements IVSd: 0.71 0.6-0.9/0.6-1.0 cm LVIDd: 4.42 3.9-5.3/4.2-5.9 cm LVIDd Index: 2.62 2.4-3.2/2.2-3.1 cm/m2 LVIDs: 2.70 2.0-3.6 cm LVPWd: 0.91 0.7-1.1 cm LA Diam: 3.50 2.7-3.8/3.0-4.0 cm LAIDs Index: 2.07 1.5-2.3 cm/m2 LV Mass: 138.79 67-162/88-224 g LV Mass Index: 82.12 43-95/49-115 g/m2 LVOT Diam: 1.90 3.0+(-)1.3 cm 2D Systolic Function EF 4C: 61.70 >55% EF 2C: 66.20 >55% EF BiP: 61.20 >55% Mitral Valve MV Pk E: 0.73 MV PK A: 0.75 MV Decel Time: 229.00 E/A: 1.00 E'Lateral: 8.27 E'Medial: 6.31 E/E' Med: 11.50 E/E' Lat: 8.80 PHT: 67.00 MVA PHT: 3.28 Decel [place]: 3.17 Aortic Valve AoV Pk [place]: 1.54 AoV Mn [place]: 1.11 AoV VTI: 0.36 AoV Pk Grad: 9.00 Aov Mn Grad: 5.00 PAOLO Cont.VTI: 2.29 LVOT LVOT Pk [place]: 1.28 LVOT Mn [place]: 0.89 LVOT VTI: 0.29 LVOT Pk Grad: 7.00 LVOT Mn Grad: 4.00 LVOT Diam: 1.90 LVOT Area: 2.84 Diastolic Function MV Pk E: 0.73 MV Pk A: 0.75 E/A: 1.00 E'Medial: 6.31 E/E' Med: 11.50 E' Laterial: 8.27 E/E' Lat: 8.80 Right Ventricle TAPSE (mm): 2.87 TVS' [place]: 11.60 Tricuspid Valve TR Pk [place]: 2.24 TR Pk Grad: 20.00 RA Press: 3.00 RVSP: 23.00 Great Vessels Aorta Sinus of Valsalva: 2.99 2.0-3.[address] [place]: 2.42 1.7-3.4 cm Ao Asc: 3.10 2.1-3.4 cm Updated in Other Vendor System with Status of Final Chuy Mayo MD electronically signed on 05/28/2023 1:00:52 PM with status of Final
== END ==
LOC: HO.CARD 07:46
PROVIDERS: PCP Internal Medicine; Visit Provider Internal Medicine
DX: R07.2 Precordial pain (principal); I25.10 Atherosclerotic heart disease of native coronary artery without angina pectoris
CPT/HCPCS: 93005; 93306; Q9957

== ENCOUNTER → 2023-05-26 07:49 | Outpatient (BNV) | payer OTHER, SELFPAY | PROVIDERS: PCP Internal Medicine; Visit Provider Internal Medicine | DX: I36.1 Nonrheumatic tricuspid (valve) insufficiency (principal) | CPT/HCPCS: 93306 ==

== ENCOUNTER 2023-06-15 14:47 | Outpatient (AMB) | payer OTHER, SELFPAY ==
[2023-06-15 14:55] VITALS: BP 96/56; PULSE 61; BMI 28.3
--- NOTE | 2023-06-15 14:55 | MHC.OFFVIS ---
Intake Vital Signs 06/15/23 14:55 Height 5 ft 2 in Weight 154 lb 12.232 oz BMI 28.3 BP 96/56 L Blood Pressure Location Lt brachial Position Sitting Pulse 61 Intake Visit Reasons: follow up echo Intake Note: follow up echo Section Leader And Machine Setter Required: Yes Section Leader And Machine Setter Language: Manager Of Internal Audit Name: Aisha [id number] Accompanied by: Self / Same As Patient Allergies lisinopril [LISINOPRIL] Allergy (Intermediate, Verified 06/15/23 14:57) HIVES Medication List - Last Reconciled 06/15/23 by Chuy Mayo MD albuterol sulfate 90 mcg/actuation 1 inh inhalation QID PRN amlodipine 10 mg PO DAILY aspirin 81 mg PO DAILY atorvastatin 40 mg PO BEDTIME carvedilol 25 mg PO BID cholecalciferol (vitamin D3) (Vitamin D3) 25 mcg PO DAILY dapagliflozin propanediol (Farxiga) 10 mg PO DAILY enalapril maleate 2.5 mg PO DAILY insulin lispro protamin-lispro 100 unit/mL (75-25) (Humalog Mix 75-25 KwikPen) 40 units subcut BIDWM nitroglycerin 0.4 mg sublingual Q5M PRN HPI HPI Comments History of Present Illness Details Ravinder returns for follow-up. In February of this year, she was seen in consultation regarding chest pain and elevated troponins. Remote history of LAD stenting. No regular follow-up with Cardiology. She was admitted to the hospital for central chest pain with radiation to the left side of the neck and jaw. Elevated troponins at that time. Then sent to [facility]. Underwent cardiac catheterization. Noted to have patent LAD stent. She had severe ostial diagonal stenosis with mild progression compared to 2007 but no interventions performed. Discharged on medical therapy. It seems that her blood pressure was low and hence some of meds were cut back and and enalapril was actually stopped. She was on as much as enalapril 20 mg b.i.d.. Since last seen, she is generally doing good. No new complaints. No further chest pains. [facility] Medical History Atherosclerotic cardiovascular disease Coronary artery disease Type II diabetes mellitus Vaginal intraepithelial neoplasia grade 1 Epigastric pain Anal pain Surgical History History of cardiac catheterization History of hysterectomy for benign disease Family History Father Diabetes Social History Household Members: Children Household Members Other:: 2 Housing: Apartment Do you presently have visiting nurse or other home services: No Alcohol intake: never Patient Tobacco Use Status: Never used Tobacco service: No Current occupational status: employed Female Reproductive History Menstrual Date of menopause: 05/10/01 Review of Systems Const Denies weakness ENT Denies dizziness Card Denies chest pain, Denies chest pain with activity, Denies syncope, Denies rapid heart rate, Denies pedal edema, Denies edema, Denies leg edema, Denies lightheadedness, Denies palpitations, Denies dyspnea, Denies dyspnea on exertion and Denies orthopnea Resp Denies cough, Denies dyspnea and Denies dyspnea on exertion GI Denies hematochezia and Denies change in stool character Musc Denies abnormal gait, Denies muscle cramps, Denies muscle weakness, Denies numbness, Denies radiating pain into limb and Denies tingling Neuro Denies abnormal gait, Denies dizziness, Denies syncope, Denies numbness, Denies tingling and Denies weakness Endo Denies palpitations Physical Exam Vital Signs: Last Vital Signs Pulse 61 06/15/23 14:55 BP 96/56 L 06/15/23 14:55 BMI result Body Mass Index 28.3 Const General: comfortable and no acute distress Orientation/consciousness: patient oriented x3 HEENT Other: Unremarkable Head: Yes normal to inspection Neck Neck: Yes normal visual inspection Chest Chest palpation & inspection: normal inspection of the chest Resp Auscultation: clear to auscultation bilaterally Cardio Palpation: normal PMI Heart sounds: S1 normal heart sound present, S2 normal heart sound present, no gallops, no murmurs and no rubs GI Palpation (GI): Soft to palpation Back/Spine/Pelvis Other: unremarkable Skin General skin exam: no rashes or lesions noted Neuro General: patient oriented x3 Extrem General: Yes normal to inspection Psych Mental Status: mental status grossly normal Assessment & Plan Assessment & Plan (1) Atherosclerotic cardiovascular disease: Code(s): I25.10 - Atherosclerotic heart disease of [place] coronary artery without angina pectoris (2) Non-ST elevation AR (NSTEMI): Code(s): I21.4 - Non-ST elevation (NSTEMI) myocardial infarction (3) Type II diabetes mellitus: Code(s): E11.9 - Type 2 diabetes mellitus without complications Qualifiers: 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 complication status: with other specified complication 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 terminal operator insulin use: without alf use Qualified Code(s): E11.69 - Type 2 diabetes mellitus with other specified complication (4) Hypertension: Code(s): I10 - Essential (primary) hypertension Qualifiers: Hypertension type: primary hypertension Qualified Code(s): I10 - Essential (primary) hypertension (5) Hyperlipidemia: Code(s): E78.5 - Hyperlipidemia, unspecified Qualifiers: Hyperlipidemia type: unspecified Qualified Code(s): E78.5 - Hyperlipidemia, unspecified Plan Cardiac catheterization data reviewed from February 2023. Previous stent in mid LAD was patent. Ostial 1st diagonal 70% stenosis. Mid LAD had 50% stenosis. Distal circumflex had 40% stenosis. RCA with minimal irregularities. No interventions performed. At that time, blood pressure was apparently low and hence enalapril was stopped. She was apparently on enalapril 20 mg b.i.d. but currently on a much smaller dose. Variable blood pressures. Today's blood pressure is on the lower side but about a month ago, it was quite high. No further changes in that regard. With regard to lipids, last LDL cholesterol 17 mg/dL and triglycerides 166 mg/dL. On statins. No changes. Otherwise, seems stable from cardiac. Follow-up in 6 months. In the interim, to call with concerns. Discussed using gas engine operator. Coding Level of Care Code Est Pt Level 4 (63252) Diagnoses Atherosclerotic cardiovascular disease I25.10 Non-ST elevation AR (NSTEMI) I21.4 Type 2 diabetes mellitus with other specified complication, without long-term current use of insulin E11.69 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 complication status: with other specified complication 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 terminal operator insulin use: without terminal operator use Primary hypertension I10 Hypertension type: primary hypertension Hyperlipidemia, unspecified hyperlipidemia type E78.5 Hyperlipidemia type: unspecified
== END 2023-06-15 15:07 | disposition home or self-care (01) ==
PROVIDERS: PCP Internal Medicine; Visit Provider Internal Medicine
DX: I25.10 Atherosclerotic heart disease of native coronary artery without angina pectoris (principal); I21.4 Non-ST elevation (NSTEMI) myocardial infarction; E11.69 Type 2 diabetes mellitus with other specified complication; I10 Essential (primary) hypertension; E78.5 Hyperlipidemia, unspecified
CPT/HCPCS: 99214

== ENCOUNTER → 2023-06-15 14:47 | Outpatient (BNVA) | payer OTHER, SELFPAY | PROVIDERS: PCP Internal Medicine; Visit Provider Internal Medicine ==

== ENCOUNTER 2023-11-10 09:47 | Outpatient (REF) | payer OTHER, SELFPAY ==
--- NOTE | 2023-11-10 09:50 | EMG_ITS ---
Right median and ulnar motor and sensory studies were performed. Right radial sensory and median and lateral antecubital brachial sensory studies were performed and paraspinal muscles were tested with a needle. IMPRESSION: Moderately severe right median neuropathy across carpal tunnel. MD ALPHONSE Quezada/LYUBOV / [id number]
== END 2023-11-10 09:48 | disposition home or self-care (01) ==
LOC: HO.NEURO 09:47
PROVIDERS: PCP Internal Medicine; Visit Provider Internal Medicine
DX: M25.531 Pain in right wrist (principal); M79.601 Pain in right arm
CPT/HCPCS: 95886; 95910

== ENCOUNTER 2023-11-13 13:47 | Emergency (ER) | payer OTHER, SELFPAY ==
[2023-11-13] VITALS (7 sets, daily range): BP systolic 111–160; BP diastolic 52–100; PULSE 52–69; RESP 16–18; TEMP 35.5–36.1; O2SAT 97–98; BMI 27.1
--- NOTE | 2023-11-13 14:18 | ECG_ITS ---
Test Reason : SYNC, WEAKENSS Blood Pressure : / mmHG Vent. Rate : 051 BPM Atrial Rate : 051 BPM P-R Int : 160 ms QRS Dur : 098 ms QT Int : 464 ms P-R-T Axes : 049 003 047 degrees QTc Int : 427 ms Sinus bradycardia Moderate voltage criteria for LVH, may be normal variant ( R in aVL , [place] product ) Nonspecific T wave abnormality Abnormal ECG When compared with ECG of 20-MAY-2023 09:51, Vent. rate has decreased BY 38 BPM Referred By: Generic ED Physician Electronically Signed By:JOSE EDUARDO NARANJO MD
--- NOTE | 2023-11-13 14:19 | ED_ITS ---
HPI - Syncope General Chief Complaint: Syncope Stated Complaint: DIZZY Time Seen by Provider: 11/13/23 14:15 Source: patient Mode of arrival: EMS Limitations: no limitations History of Present Illness HPI narrative: 68 year old female PMH: DM type II, CAD, left shoulder pain, Hysterectomy, Depression, HTN, HLD who presents to the ER after almost passing out while going to supervisor opening and picking prescriptions from pharmacy. She states this happens when her blood sugar is low no symptoms at present. MD complaint: almost passed out Related Data Home Medications ?Medication ?Instructions ?Recorded ?Confirmed aspirin 81 mg tablet,delayed 81 mg PO DAILY 09/20/20 06/15/23 release atorvastatin 40 mg tablet 40 mg PO BEDTIME 09/20/20 06/15/23 carvedilol 25 mg tablet 25 mg PO BID 09/20/20 06/15/23 cholecalciferol (vitamin D3) 25 25 mcg PO DAILY 02/09/23 06/15/23 mcg (1,000 unit) capsule (Vitamin D3) insulin lispro protamine-lispro 40 unit subcut BIDWM 02/09/23 06/15/23 100 unit/mL (75-25) subcutaneous pen (Humalog Mix 75-25 KwikPen) dapagliflozin propanediol 10 mg 10 mg PO DAILY 05/20/23 06/15/23 tablet (Farxiga) enalapril maleate 2.5 mg tablet 2.5 mg PO DAILY 05/20/23 06/15/23 Previous Rx's ?Medication ?Instructions ?Recorded albuterol sulfate 90 mcg/actuation 1 inh inhalation QID PRN shortness 08/23/20 aerosol inhaler of breath or wheezing #18 grams amlodipine 10 mg tablet 10 mg PO DAILY #90 tabs 05/20/23 nitroglycerin 0.4 mg sublingual 0.4 mg sublingual Q5M PRN chest 05/20/23 tablet pain #30 tabs Allergies Allergy/AdvReac Type Severity Reaction Status Date / Time lisinopril [LISINOPRIL] Allergy Intermediate HIVES Verified 11/13/23 14:18 Review of Systems 2 Review of Systems: Review of systems: General: Patient denies any fever chills recent illness or falls Musculoskeletal: Denies back pain or body aches or other injuries HEENT: denies headache, runny nose, ear pain Respiratory: denies shortness of breath, cough Cardiovascular: no chest pain or palpitations : denies dysuria, frequency Abdomen: no nausea vomiting denies abdominal pain Extremities: no swelling, no pain Skin: no diaphoresis Yes all other systems are reviewed and are negative PMFSH Past Medical History Medical History Atherosclerotic cardiovascular disease Coronary artery disease Type II diabetes mellitus Vaginal intraepithelial neoplasia grade 1 Epigastric pain Anal pain Surgical History History of cardiac catheterization History of hysterectomy for benign disease Family History Family History Father Diabetes Social History Social History Household Members: Children Household Members Other:: 2 Housing: Apartment Do you presently have visiting nurse or other home services: No Alcohol intake: never Patient Tobacco Use Status: Never used Tobacco service: No Current occupational status: employed Physical Exam 2 Vital Signs: Vital Signs: Last Vital Signs Temp 96 F L 11/13/23 14:51 Pulse 54 11/13/23 14:14 Resp 16 11/13/23 14:14 BP 129/66 11/13/23 14:14 Pulse Ox 97 11/13/23 14:14 O2 Del Method Room Air 11/13/23 14:14 BMI result Body Mass Index 27.1 Neurological exam: CN II- XII tested. Patient is alert and oriented to person place and time. Patient has no dysphagia or dysarthia, denies good vision in all four vision lee no nystagmus on exam, good strength to upper and lower extremities with normal reflexes to brachioradialis, wrist, patella and achilles. Negative romberg, good finger to nose and heel to logan. General: Well-appearing well-nourished in no signs of distress HEENT: Normocephalic atraumatic Neck: No signs of JVD, no masses no tenderness or lymphadenopathy Cardiovascular: Regular rate and rhythm Respiratory: Clear to auscultation bilaterally Abdomen: Soft nontender no masses Extremities: Normal pedal pulses no signs of edema Skin: Dry warm no rashes Back: No tenderness full ROM Medical Decision Making Medical Decision Making MDM Narrative: Will check some general labs: CBC and BNP get an EKG and check blood sugar Differential Diagnosis Differential Diagnoses: The differential diagnosis associated with the presentation includes Near syncope hypoglycemia anxiety depression Admission/Observation Consideration of admission/observation: Escalation of care including admission/observation considered With normal labs blood sugar improved after initial arrival I feel comfortable discharging home Lab Data MDM Lab Attestation statement: I reviewed the patient's lab results. Hypoglycemic on arrival was given food improved 11/13/23 14:46 11/13/23 14:46 Labs: Lab Results 11/13/23 11/13/23 11/13/23 Range/Units 14:30 14:46 15:17 WBC 16.9 H (4.8-10.8) X10*3/uL RBC 4.72 (4.20-5.50) X10*6/uL Hgb 14.2 (12.0-16.0) g/dl Hct 42.1 (37.0-47.0) % MCV 89.2 (80.0-98.0) fL MCH 30.1 (27.0-33.0) pg MCHC 33.7 (31.0-35.0) g/dl RDW 12.0 (11.0-16.0) % Plt Count 274 (160-400) X10*3/uL MPV 9.7 (9.4-12.3) fL Immature Gran % (Auto) 0.4 (0.0-0.4) % Neut % (Auto) 69.7 (45-73) % Lymph % (Auto) 20.9 (20-40) % [place] % (Auto) 7.8 (2-11) % Eos % (Auto) 0.9 (0-4) % Baso % (Auto) 0.3 (0-2) % Lymph # (Auto) 3.5 (1.2-4.9) X10*3/uL [place] # (Auto) 1.3 H (0.1-1.2) X10*3/uL Eos # (Auto) 0.2 (0.0-0.4) X10*3/uL Baso # (Auto) 0.1 (0.0-0.2) X10*3/uL Abs Immat Gran (auto) 0.07 H (0.00-0.03) X10*3/uL Absolute Neuts (auto) 11.8 H (2.0-8.3) x10*3/uL Absolute Nucleated RBC 0.000 (0.0-0.012) X10*3/uL Nucleated RBC % (auto) 0.0 (0.0-0.2) /100WBC Sodium 139 (135-145) mmol/L Potassium 3.6 (3.3-5.1) mmol/L Chloride 105 (96-108) mmol/L Carbon Dioxide 27 (22-29) mmol/L Anion Gap 11 L (12-20) BUN 26 H (9-16) mg/dL Creatinine 0.78 (0.5-1.4) mg/dL Estim Creat Clear Calc 63.7 Estimated GFR > 60 POC Glucose 58 L* 110 (60-115) mg/dL Random Glucose 64 (60-115) mg/dL Calcium 10.2 (8.4-10.2) mg/dL Total Bilirubin 0.4 (0.0-1.0) mg/dL AST 16 (5-31) U/L ALT 25 (0-31) U/L Alkaline Phosphatase 111 (39-117) U/L Total Protein 7.4 (6.5-8.0) g/dL Albumin 4.0 (3.5-5.0) g/dL Independent Interpretation I performed an independent interpretation of an: EKG External Record Review External record reviewed: Inpatient record and Office record Chronic Conditions Patient?s care impacted by: Diabetes and Hypertension HLD Core Measures AMI core measures followed: Yes Discharge Plan Discharge Clinical Impression: Near syncope, Hypoglycemia Patient Disposition: Home, Self-Care Instructions: Hypoglycemia in a Person with Diabetes (ED), Near Syncope (ED) Additional Instructions: You were seen today after almost passing out. You had labs and EKG. Please call follow-up your doctor if you have any other concerns please do not hesitate to come back to the emergency department. Prescriptions: No Action albuterol sulfate 90 mcg/actuation HFA aerosol inhaler 1 inh inhalation QID PRN (Reason: shortness of breath or wheezing) Qty: 18 0RF insulin lispro protamin-lispro [Humalog Mix 75-25 KwikPen] 100 unit/mL (75-25) insulin pen 40 unit subcut BIDWM cholecalciferol (vitamin D3) [Vitamin D3] 25 mcg (1,000 unit) capsule 25 mcg PO DAILY aspirin 81 mg tablet,delayed release (DR/EC) 81 mg PO DAILY atorvastatin 40 mg tablet 40 mg PO BEDTIME carvedilol 25 mg tablet 25 mg PO BID Farxiga 10 mg tablet 10 mg PO DAILY enalapril maleate 2.5 mg tablet 2.5 mg PO DAILY nitroglycerin 0.4 mg tablet, sublingual 0.4 mg sublingual Q5M PRN (Reason: chest pain) Qty: 30 5RF Rx Instructions: do not exceed 3 doses per episode amlodipine 10 mg tablet 10 mg PO DAILY Qty: 90 3RF Print Language: Yoruba
[2023-11-13 14:33] LABS: Glucose, Whole Blood 58 mg/dL (60-115)
--- NOTE | 2023-11-13 14:36 | PC.NURSE ---
GIVEN SANDWICH, DAVE ANN AND ORANGE JUICE, MD AWARE OF HYPOGLEMIA.
[2023-11-13 14:53] LABS: MANUAL DIFF FLAG NO
[2023-11-13 14:58] LABS: Basophils Absolute Auto 0.1 X10*3/uL (0.0-0.2); Basophils Percent Auto 0.3 % (0-2); Eosinophils Absolute Auto 0.2 X10*3/uL (0.0-0.4); Eosinophils Percent Auto 0.9 % (0-4); Hematocrit 42.1 % (37.0-47.0); Hemoglobin 14.2 g/dl (12.0-16.0); Imm Gran Abs Auto 0.07 X10*3/uL (0.00-0.03); Imm Gran Pct Auto 0.4 % (0.0-0.4); Lymphocytes Absolute Auto 3.5 X10*3/uL (1.2-4.9); Lymphocytes Percent Auto 20.9 % (20-40); Mean Corpuscular HGB Conc 33.7 g/dl (31.0-35.0); Mean Corpuscular Hemoglobin 30.1 pg (27.0-33.0); Mean Corpuscular Volume 89.2 fL (80.0-98.0); Mean Platelet Volume 9.7 fL (9.4-12.3); Monocytes Absolute Auto 1.3 X10*3/uL (0.1-1.2); Monocytes Percent Auto 7.8 % (2-11); Neutrophils Absolute Auto 11.8 x10*3/uL (2.0-8.3); Neutrophils Percent Auto 69.7 % (45-73); Platelet Count 274 X10*3/uL (160-400); Red Blood Count 4.72 X10*6/uL (4.20-5.50); White Blood Count 16.9 X10*3/uL (4.8-10.8)
[2023-11-13 15:17] LABS: Alanine Aminotransferase 25 U/L (0-31); Alkaline Phosphatase 111 U/L (39-117); Anion Gap 11 (12-20); Aspartate Amino Transferase 16 U/L (5-31); Bilirubin Total 0.4 mg/dL (0.0-1.0); Blood Urea Nitrogen 26 mg/dL (9-16); Calcium 10.2 mg/dL (8.4-10.2); Carbon Dioxide 27 mmol/L (22-29); Chloride 105 mmol/L (96-108); Creatinine Clr Calc Pharmacy 63.7; Estimated Glomerular Filt Rate > 60; Glucose Random 64 mg/dL (60-115); Potassium 3.6 mmol/L (3.3-5.1); Sodium 139 mmol/L (135-145); Total Protein 7.4 g/dL (6.5-8.0)
[2023-11-13 15:20] LABS: Glucose, Whole Blood 110 mg/dL (60-115)
== END 2023-11-13 15:35 | disposition home or self-care (01) ==
LOC: HO.ED 15:28
PROVIDERS: Emergency Provider Student in an Organized Health Care Education/Training Program
DX: R55 Syncope and collapse (principal); E11.649 Type 2 diabetes mellitus with hypoglycemia without coma; I10 Essential (primary) hypertension
CPT/HCPCS: 36415; 80053; 82947; 85025; 93005; 99283; 99284

== ENCOUNTER → 2023-11-13 14:18 | Outpatient (BNV) | payer OTHER, SELFPAY | PROVIDERS: Emergency Provider Student in an Organized Health Care Education/Training Program; Visit Provider Internal Medicine Cardiovascular Disease | DX: R00.1 Bradycardia, unspecified (principal) | CPT/HCPCS: 93010 ==

== ENCOUNTER 2023-11-17 13:13 | Outpatient (REF) | payer OTHER, SELFPAY | END 2023-11-17 13:14 | disposition home or self-care (01) | LOC: HO.MAMMO 13:13 | PROVIDERS: PCP Internal Medicine; Visit Provider Internal Medicine | DX: Z12.31 Encounter for screening mammogram for malignant neoplasm of breast (principal) | CPT/HCPCS: 77063; 77067 ==

== ENCOUNTER → 2023-11-17 13:45 | Outpatient (BNV) | payer OTHER, SELFPAY | PROVIDERS: PCP Internal Medicine; Visit Provider Radiology Diagnostic Radiology | DX: Z12.31 Encounter for screening mammogram for malignant neoplasm of breast (principal) | CPT/HCPCS: 77063; 77067 ==

== ENCOUNTER 2023-12-16 13:46 | Outpatient (AMB) | payer OTHER, SELFPAY ==
[2023-12-16 13:53] VITALS: BP 110/60; PULSE 70; BMI 28.0
--- NOTE | 2023-12-16 13:53 | MHC.OFFVIS ---
Vital Signs 12/16/23 13:53 Height 5 ft 2 in Weight 153 lb 0.013 oz BMI 28.0 BP 110/60 Blood Pressure Location Lt brachial Position Sitting Pulse 70 Pulse Source Pulse Oximeter Intake Visit Reasons: 6 month follow up Topper Packer Required: Yes Topper Packer Name: [email or web address] Accompanied by: Self / Same As Patient Allergies lisinopril [LISINOPRIL] Allergy (Intermediate, Verified 11/13/23 14:18) HIVES Medication List - Last Reconciled 12/16/23 by Chuy Mayo MD albuterol sulfate 90 mcg/actuation 1 inh inhalation QID PRN amlodipine 10 mg PO DAILY aspirin 81 mg PO DAILY atorvastatin 40 mg PO BEDTIME carvedilol 25 mg PO BID cholecalciferol (vitamin D3) (Vitamin D3) 25 mcg PO DAILY dapagliflozin propanediol (Farxiga) 10 mg PO DAILY enalapril maleate 2.5 mg PO DAILY insulin lispro protamin-lispro 100 unit/mL (75-25) (Humalog Mix 75-25 KwikPen) 40 units subcut BIDWM nitroglycerin 0.4 mg sublingual Q5M PRN HPI Comments Details: Ravinder returns for follow-up. In 2022, seen in consultation regarding chest pain and elevated troponins. Remote LAD stenting. Then sent to [facility]. Cardiac catheterization with patent LAD stent. Severe ostial diagonal stenosis with mild progression compared 2007. No interventions performed. Overall, doing okay. No new complaints. Her blood pressure was apparently low and hence meds were cut back. No new issues since last seen. No angina. [facility] Medical History Atherosclerotic cardiovascular disease Coronary artery disease Type II diabetes mellitus Vaginal intraepithelial neoplasia grade 1 Epigastric pain Anal pain Surgical History History of cardiac catheterization History of hysterectomy for benign disease Family History Father Diabetes Social History Household Members: Children Household Members Other:: 2 Housing: Apartment Do you presently have visiting nurse or other home services: No Alcohol intake: never Patient Tobacco Use Status: Never used Tobacco service: No Current occupational status: employed Female Reproductive History Menstrual Date of menopause: 05/10/01 Review of Systems Const Denies chills, Denies fatigue, Denies fever(s), Denies frequent falls, Denies weakness, Denies weight gain and Denies weight loss ENT Denies dizziness Card Denies chest pain, Denies leg edema, Denies lightheadedness, Denies palpitations, Denies dyspnea and Denies dyspnea on exertion Resp Denies cough, Denies dyspnea and Denies dyspnea on exertion GI Denies hematochezia Musc Denies abnormal gait, Denies muscle weakness, Denies numbness, Denies radiating pain into limb and Denies tingling Neuro Denies abnormal gait, Denies dizziness, Denies frequent falls, Denies numbness, Denies tingling and Denies weakness Endo Denies fatigue and Denies palpitations Physical Exam Vital Signs: Last Vital Signs Pulse 70 12/16/23 13:53 BP 110/60 12/16/23 13:53 BMI result Body Mass Index 28.0 Const General: comfortable and no acute distress Orientation/consciousness: patient oriented x3 HEENT Other: Unremarkable Head: Yes normal to inspection Neck Neck: Yes normal visual inspection Chest Chest palpation & inspection: normal inspection of the chest Resp Auscultation: clear to auscultation bilaterally Cardio Palpation: normal PMI Heart sounds: S1 normal heart sound present, S2 normal heart sound present, no gallops, no murmurs and no rubs GI Palpation (GI): Soft to palpation Back/Spine/Pelvis Other: unremarkable Skin General skin exam: no rashes or lesions noted Neuro General: patient oriented x3 Extrem General: Yes normal to inspection Psych Mental Status: mental status grossly normal Assessment & Plan Assessment & Plan (1) Atherosclerotic cardiovascular disease: Code(s): I25.10 - Atherosclerotic heart disease of [place] coronary artery without angina pectoris Category: Medical (2) Non-ST elevation [place] (NSTEMI): Code(s): I21.4 - Non-ST elevation (NSTEMI) myocardial infarction Category: Medical (3) Type II diabetes mellitus: Code(s): E11.9 - Type 2 diabetes mellitus without complications Category: Medical Qualifiers: 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 complication status: with other specified complication 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 middle or intermediate school principal insulin use: without middle or intermediate school principal use Qualified Code(s): E11.69 - Type 2 diabetes mellitus with other specified complication (4) Hypertension: Code(s): I10 - Essential (primary) hypertension Category: Medical Qualifiers: Hypertension type: primary hypertension Qualified Code(s): I10 - Essential (primary) hypertension (5) Hyperlipidemia: Code(s): E78.5 - Hyperlipidemia, unspecified Category: Medical Qualifiers: Hyperlipidemia type: unspecified Qualified Code(s): E78.5 - Hyperlipidemia, unspecified Plan Cardiac catheterization data reviewed from February 2023. Previous stent in mid LAD was patent. Ostial 1st diagonal 70% stenosis. Mid LAD had 50% stenosis. Distal circumflex had 40% stenosis. RCA with minimal irregularities. No interventions performed. At that time, blood pressure was apparently low and hence enalapril was stopped. She was apparently on enalapril 20 mg b.i.d. but currently on a much smaller dose. Currently, stable blood pressure. She has brought home reading as well and that seems normal. No further changes at this time. With regard to lipids, last LDL cholesterol 17 mg/dL and triglycerides 166 mg/dL. On statins. No changes. Follow-up in 1 year. In the interim, she will call with concerns. photographic reproduction technician used. 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
== END 2023-12-16 14:18 | disposition home or self-care (01) ==
PROVIDERS: PCP Internal Medicine; Visit Provider Internal Medicine
DX: I25.10 Atherosclerotic heart disease of native coronary artery without angina pectoris (principal); I21.4 Non-ST elevation (NSTEMI) myocardial infarction; E11.69 Type 2 diabetes mellitus with other specified complication; I10 Essential (primary) hypertension; E78.5 Hyperlipidemia, unspecified
CPT/HCPCS: 99214

== ENCOUNTER → 2023-12-16 13:46 | Outpatient (BNVA) | payer OTHER, SELFPAY | PROVIDERS: PCP Internal Medicine; Visit Provider Internal Medicine ==

== ENCOUNTER 2023-12-30 12:52 | Outpatient (REF) | payer OTHER, SELFPAY ==
[2023-12-30 19:12] LABS: Erythrocyte Sedimentation Rate 6 MM/HR (0-20)
[2023-12-30 20:03] LABS: Alanine Aminotransferase 25 U/L (0-31); Albumin Level 4.2 g/dL (3.5-5.0); Alkaline Phosphatase 107 U/L (39-117); Anion Gap 15 (12-20); Aspartate Amino Transferase 16 U/L (5-31); Bilirubin Total 0.5 mg/dL (0.0-1.0); Blood Urea Nitrogen 19 mg/dL (9-16); Calcium 10.3 mg/dL (8.4-10.2); Carbon Dioxide 24 mmol/L (22-29); Chloride 106 mmol/L (96-108); Estimated Glomerular Filt Rate 60; Glucose Random 157 mg/dL (60-115); Potassium 4.2 mmol/L (3.3-5.1); Sodium 141 mmol/L (135-145); Total Protein 7.3 g/dL (6.5-8.0)
[2023-12-31 14:24] LABS: RPR Rapid Plasma Reagin NON-REACTIVE (NON-REACTIVE)
== END 2023-12-30 12:53 | disposition home or self-care (01) ==
LOC: HO.HHCL 12:52
PROVIDERS: Visit Provider Internal Medicine
DX: R53.83 Other fatigue (principal)
CPT/HCPCS: 36415; 80053; 82550; 84443; 85652; 86592

== ENCOUNTER 2024-01-05 09:04 | Outpatient (REF) | payer OTHER, SELFPAY ==
--- NOTE | ~2024-01-05 | XR_ITS ---
EXAMINATION: XR WRIST, RIGHT CLINICAL INFORMATION: Pain in right wrist. COMPARISON: None available. TECHNIQUE: PA, lateral, and oblique views of the right wrist. FINDINGS: Moderate degenerative changes in the first carpometacarpal joint with joint space narrowing and hypertrophic change. Subchondral cystic lucency with sclerosis along the radial aspect of the second metacarpal head. Focal sclerosis along the distal articular surface of the radius. Multiple amorphous calcifications in the soft tissues along the volar aspect of the wrist, best appreciated on the lateral view of indeterminate age and etiology. XR/XR wrist RT min 3V IMPRESSION: 1. Multiple amorphous calcifications in the soft tissues along the volar aspect of the wrist, best appreciated on the lateral view of indeterminate age and etiology. 2. Subchondral cystic lucency with sclerosis along the radial aspect of the second metacarpal head. 3. Focal sclerosis along the distal articular surface of the radius.
== END 2024-01-05 09:05 | disposition home or self-care (01) ==
LOC: HO.HOSX 09:04
PROVIDERS: Visit Provider Orthopaedic Surgery
DX: G56.01 Carpal tunnel syndrome, right upper limb (principal); E11.69 Type 2 diabetes mellitus with other specified complication; I25.10 Atherosclerotic heart disease of native coronary artery without angina pectoris; M77.11 Lateral epicondylitis, right elbow; M25.511 Pain in right shoulder
CPT/HCPCS: 73110

== ENCOUNTER 2024-01-05 10:42 | Outpatient (AMB) | payer OTHER, SELFPAY ==
--- NOTE | 2024-01-05 11:09 | A.OFFVIS_ITS ---
Intake Visit Reasons: New Prob - right wrist pain Intake Note: Gabriella 68 yr old right hand dominant female presents today for a new problem visit for her right wrist pain. States pain is on her whole wrist and it radiates up to her elbow. States her pain and off and on numbness started about less than a year ago. She expresses her pain is worse when twisting lids off and lifting heavy items. Allergies lisinopril [LISINOPRIL] Allergy (Intermediate, Verified 01/05/24 11:17) HIVES [facility] HPI New Prob - right wrist pain: Details: Gabriella is a 68 year old right hand dominant Trinidadian speaking Diabetic woman who presents with complaints of right wrist pain & numbness. She complains of pain in her right dorsal wrist, which she says radiates into the dorsal lateral aspect of her forearm & her elbow & shoulder at times. Her pain is worse with pinching, gripping, twisting, or heavy lifting. She reports occasional mild shoulder pain with overhead activity. She also complains of numbness in the thumb, index, and middle finger of her right hand. Symptoms intermittent, but daily, worse at night She has Diabetes & CVD. She says this is controlled. She uses Nitroglycerin prn PFSH Medical History Atherosclerotic cardiovascular disease Coronary artery disease Type II diabetes mellitus Vaginal intraepithelial neoplasia grade 1 Epigastric pain Anal pain Surgical History History of cardiac catheterization History of hysterectomy for benign disease Family History Father Diabetes Social History Household Members: Children Household Members Other:: 2 Housing: Apartment Do you presently have visiting nurse or other home services: No Alcohol intake: never Patient Tobacco Use Status: Never used Tobacco service: No Current occupational status: employed Female Reproductive History Menstrual Date of menopause: 05/10/01 Review of Systems Const All systems reviewed & are unremarkable except as noted in HPI and below Physical Exam Const General: cooperative, healthy appearing and no acute distress Orientation/consciousness: patient oriented x3 HEENT Head: Yes normocephalic and Yes atraumatic Eyes EOM: EOMs intact bilaterally Resp Effort & Inspection: normal respiratory effort and able to speak in complete sentences Cardio Jugular venous distension: no JVD Skin General skin exam: turgor normal Rashes: no rashes Neuro General: patient oriented x3 Extrem Other: Evaluation of Right Upper Extremity: The patient is alert, oriented, and in no acute distress Neuro: Median, Ulnar, Radial nerves motor and sensory intact and sensation is normal to the tips of all digits Vascular: Cap refill brisk ROM: She can make a fist and extend all her digits No locking or catching Skin: No lacerations or abrasions. General: No Ecchymosis. No Erythema or evidence of infection. Pain referred tot he extensor origin with resisted wrist extension No pain with reissted finger etension Tender over the extensor origin just distal to the lateral epicondyle No tenderness over the dorsal aspect of the wrist She was able to demonstrate forward flexion of her shoulder, but this caused some anterior shoulder pain Nerve Conduction study: Right side only IMPRESSION: Moderately severe right median neuropathy across carpal tunnel. Krysta Becker MD 11/10/2023 Radiographs: 3 views of the right wrist were taken and viewed by me today in clinic. They show no fractures or dislocations. There is some basal joint arthritis, with joint space narrowing & early osteophyte formation. She has some calcifications on the volar aspect of the radiocarpal joint, best seen on the lateral view. Psych Appearance: grossly normal Affect: normal affect Attitude: cooperative Assessment & Plan Assessment & Plan (1) Carpal tunnel syndrome of right wrist: Code(s): G56.01 - Carpal tunnel syndrome, right upper limb Category: Medical (2) Type II diabetes mellitus: Code(s): E11.9 - Type 2 diabetes mellitus without complications Category: Medical Qualifiers: 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 complication status: with other specified complication 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 director long term care insulin use: without director long term care use Qualified Code(s): E11.69 - Type 2 diabetes mellitus with other specified complication (3) Atherosclerotic cardiovascular disease: Code(s): I25.10 - Atherosclerotic heart disease of [place] coronary artery without angina pectoris Category: Medical (4) Right lateral epicondylitis: Code(s): M77.11 - Lateral epicondylitis, right elbow Category: Medical (5) Right shoulder pain: Code(s): M25.511 - Pain in right shoulder Category: Medical Plan Assessment & Plan: 1. Right carpal tunnel syndrome, moderate-severe Symptoms intermittent, but daily, worse at night I educated her about this condition I discussed operative and non-operative treatment options The patient would like to proceed with surgery The risks and benefits of operative treatment were discussed with the patient and the patient wishes to proceed with surgery. These risks include, but are not limited to risk of damage to blood vessels, nerves, tendons, infection, recurrence, incomplete relief of preoperative symptoms, persistent pain, possible need for further surgery and the risks associated with regional blocks and anesthesia. The plan is to take the patient to the operating room sometime in the next few weeks for the following procedures: 1. Right carpal tunnel release, under local All of the preoperative paperwork including the consent was reviewed today. All the patient's questions were answered. The patient understands that they will be contacted by our help desk support specialist soon to schedule this procedure She denies blood thinners, asthma, lung, kidney issues She has CVD and uses Nitroglycerin prn She is a Diabetic, her most recent HgA1c was 8.0% on 12/29/23. Patient requested that we keep her out of work until she can have surgery. Later today she called up and asked that we keep her out of work for several days at least because she has carpal tunnel. We politely explained both times that we would keep her out of work for a period of time After surgery, but that we will not keep her out of surgery before hand. 2. Right lateral epicondylitis I educated her about this condition I discussed treatment options I recommend OT hand therapy and activity modification I discussed activity modification, she should limit or avoid any heavy or repetitive lifting activities I ordered OT hand therapy to work on normalizing function. She also has some occasional shoulder pain hat may benefit from OT as well. If she continues to have pain we may consider a possible injection in the future Patient also complains of pain radiating up to the right shoulder. She will follow up with General ortho for her right shoulder pain. follow up prn Scribed for Bety Hernandez MD by Constantine Mulligan, certified court/medical interpreter, on 01/05/24 at 11:40 AM, EST. Orders: Orders OT Evaluation and Treatment Today E11.69 - Type 2 diabetes mellitus with other specified complication, G56.01 - Carpal tunnel syndrome, right upper limb, M25.511 - Pain in right shoulder, M77.11 - Lateral epicondylitis, right elbow XR wrist RT min 3V Today M25.531 - Pain in right wrist Coding Level of Care Code New Pt Level 4 (10803) Diagnoses Carpal tunnel syndrome of right wrist G56.01 Type 2 diabetes mellitus with other specified complication, without long-term current use of insulin E11.69 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 complication status: with other specified complication 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 director long term care insulin use: without director long term care use Atherosclerotic cardiovascular disease I25.10 Right lateral epicondylitis M77.11 Right shoulder pain M25.511
== END 2024-01-05 11:57 | disposition home or self-care (01) ==
PROVIDERS: PCP Internal Medicine; Visit Provider Orthopaedic Surgery
DX: G56.01 Carpal tunnel syndrome, right upper limb (principal); E11.69 Type 2 diabetes mellitus with other specified complication; I25.10 Atherosclerotic heart disease of native coronary artery without angina pectoris; M77.11 Lateral epicondylitis, right elbow; M25.511 Pain in right shoulder
CPT/HCPCS: 99214

== ENCOUNTER 2024-01-11 10:28 | Outpatient (REF) | payer OTHER, SELFPAY ==
--- NOTE | ~2024-01-11 | XR_ITS ---
EXAMINATION: XR LUMBOSACRAL SPINE WITH OBLIQUES CLINICAL INFORMATION: Acute bilateral low back pain with bilateral sciatica COMPARISON: None available. TECHNIQUE: AP, both oblique, and lateral views of the lumbar spine. Lateral view of the lumbosacral junction. FINDINGS: Degenerative changes are present throughout the spine with some relative sparing at L3-L4 and L4-L5. Most marked disc space narrowing seen at L1-L2 and L5-S1 with vacuum phenomenon. There is a mild scoliosis convex to the left. No fractures or bony destructive lesions are seen. There are mild degenerative changes seen at the L4-L5 facet joints. XR/XR lumbar spine 4V min IMPRESSION: Degenerative changes as described above.
== END 2024-01-11 10:29 | disposition home or self-care (01) ==
LOC: HO.HHCX 10:28
PROVIDERS: Visit Provider Emergency Medicine
DX: M54.42 Lumbago with sciatica, left side (principal); M54.41 Lumbago with sciatica, right side
CPT/HCPCS: 72110

== ENCOUNTER 2024-02-01 12:14 | Outpatient (REF) | payer OTHER, SELFPAY ==
[2024-02-01 13:54] LABS: Alanine Aminotransferase 23 U/L (0-31); Albumin Level 4.3 g/dL (3.5-5.0); Alkaline Phosphatase 124 U/L (39-117); Anion Gap 12 (12-20); Aspartate Amino Transferase 13 U/L (5-31); Bilirubin Total 0.4 mg/dL (0.0-1.0); Blood Urea Nitrogen 18 mg/dL (9-16); Calcium 10.6 mg/dL (8.4-10.2); Carbon Dioxide 28 mmol/L (22-29); Chloride 101 mmol/L (96-108); Cholesterol 185 mg/dL (<200); Estimated Glomerular Filt Rate 55; Glucose Random 309 mg/dL (60-115); HDL Cholesterol 50 mg/dL (>40); LDL Cholesterol Calculated 82 mg/dL (<100); Potassium 4.1 mmol/L (3.3-5.1); Sodium 137 mmol/L (135-145); Total Protein 7.9 g/dL (6.5-8.0); Triglycerides 265 mg/dL (<150)
[2024-02-01 15:17] LABS: Reflex LDLD? No
== END 2024-02-01 12:15 | disposition home or self-care (01) ==
LOC: HO.HHCL 12:14
PROVIDERS: Visit Provider Internal Medicine
DX: E11.22 Type 2 diabetes mellitus with diabetic chronic kidney disease (principal); Z79.4 Long term (current) use of insulin
CPT/HCPCS: 36415; 80053; 80061

== ENCOUNTER 2024-02-09 11:06 | Outpatient (AMB) | payer BC, SELFPAY ==
--- NOTE | 2024-02-09 11:08 | MHC.OFFVIS ---
Vital Signs 02/09/24 11:12 Height 5 ft 2 in Weight 149 lb BMI 27.2 BP 130/72 Blood Pressure Location Rt brachial Position Sitting Respiration 16 Pulse 78 Pulse Source Pulse Oximeter Pulse Oximetry (%) 99 Oxygen Delivery Method Room Air Intake Visit Reasons: Bilateral Low Back Pain Intake Note: Pain today 03/19 Cocktail Lounge Manager Required: Yes Cocktail Lounge Manager Language: Bakery Worker Name: Susan #[id number] Accompanied by: Self / Same As Patient Allergies lisinopril [LISINOPRIL] Allergy (Intermediate, Verified 02/09/24 11:12) HIVES HPI HPI Bilateral Low Back Pain: Details: Patient is a pleasant 68 years old Slovenian-speaking female with history of diabetes with chronic kidney disease, CAD, depression, left shoulder pain, chronic low back pain, presents today for initial evaluation of recurrent low back pain, right shoulder and right knee pain. 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 She states, back in November 2023, she assisted patient with lifting to transfer to wheelchair and felt sudden shooting pain in her lower back with radiation to bilateral lower extremities, worse on the right side. Initially she had numbness in the right lower extremities which she states has gotten better over the time. 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 Today she reports axial low back pain without radiation into her lower extremities. She reports chronic bilateral foot pain with numbness and tingling due to diabetic neuropathy. She reports anterior right knee pain and right shoulder pain due to arthritis. Recent lumbar spine x-ray showed degenerative changes that are present throughout the spine with some relative sparing at L3-L4 and L4-L5 and most marked disc space narrowing seen at L1-L2 and L5-S1 with vacuum phenomenon. To this point she has not tried any dedicated conservative treatment in the forms of physical therapy or injections. Patient is interested to pursue PT as initial steps. Denies any fever, chills, dizziness, chest pain, shortness of breath, abdominal or groin pain, weakness, foot drop, bladder or bowel dysfunction or saddle anesthesia. Oswestry Low Back Disability Score=9 (mild disability) Location: Lower back, right knee, right shoulder Duration: Chronic pain, worsening for the 2 months due to heavy lifting at work Characteristics of symptom or complaint: Aching, dull, tingling, numbness, sore, shooting, tightness Aggravating or associated factors: Movement, bending, supine rest, lifting, walking, twisting Relieving factors: Tizanidine, Tylenol, heat therapy, rest Treatment: Xrays, home stretching exercises PFSH Medical History Atherosclerotic cardiovascular disease Coronary artery disease Type II diabetes mellitus Vaginal intraepithelial neoplasia grade 1 Epigastric pain Anal pain Surgical History History of cardiac catheterization History of hysterectomy for benign disease Family History Father Diabetes Social History Household Members: Children Household Members Other:: 2 Housing: Apartment Do you presently have visiting nurse or other home services: No Alcohol intake: never Patient Tobacco Use Status: Never used Tobacco service: No Current occupational status: employed Female Reproductive History Menstrual Date of menopause: 05/10/01 Review of Systems Const All systems reviewed & are unremarkable except as noted in HPI and below Physical Exam Vital Signs: Last Vital Signs Pulse 78 02/09/24 11:12 Resp 16 02/09/24 11:12 BP 130/72 02/09/24 11:12 Pulse Ox 99 02/09/24 11:12 Oxygen Delivery Method Room Air 02/09/24 11:12 BMI result Body Mass Index 27.2 General: Appears afebrile. No acute distress. Alert and oriented. Mood and affect appropriate. Follows and participates in conversation appropriately. Respiratory effort is unlabored. No cough. Able to transition from sit to stand unassisted. Ambulates with bilaterally normal heel strike and toe off. General: Yes no CVA tenderness Back/Spine/Pelvis Other: Patient is able to walk and stand on heels and tip toes with no difficulties demonstrating good motor tone. Normal gait, no limping. Can flex forward to 70-75 degrees and extend to 5-10 degrees before experiencing lumbar pain. Increased pain with axial rotations and forward flexion. Demonstrates 5/5 strength of quadriceps bilaterally as well as flexion/dorsiflexion of bilateral feet against resistance. 2+ pedal pulses bilaterally. Seated straight leg rise with dorsiflexion negative bilaterally. +2 patellar and achilles reflexes bilaterally. Facet loading test positive bilaterally. Hari sign, Frank?s, Pelvic compression and Stinchfield tests are negative bilaterally. No groin pain with I/E hip rotations. Valsalva maneuver negative. Back: no CVA tenderness Cervical Spine: cervical ROM normal, cervical muscular tenderness, No Cervical spine scars present and No Cervical spine tenderness Thoracic/Lumbar Spine: thoracic and lumbar spine normal to inspection, No Thoracic/lumbar spine scar(s), Lasegue's sign negative, straight leg raise negative bilaterally, pain with thoraco-lumbar ROM, paraspinal muscle tenderness, thoraco-lumbar ROM limited, No thoracic spinal tenderness and lumbar spinal tenderness (L4-S1) Pelvis: no buttock tenderness Sacroiliac joints: bilaterally nontender Extrem General: Yes capillary refill normal, Yes no clubbing, cyanosis or edema and Yes no calf tenderness Right upper extremity: shoulder/upper arm Details: normal to inspection, tenderness, normal ROM (pain with overhead reaches) and crepitus; no swelling, no ecchymosis and no unusual warmth Right lower extremity: knee (Limited ROM due to pain) Details: normal to inspection, tenderness Location: of the medial joint line and of the lateral joint line and crepitus; no swelling, no ecchymosis, no deformity and no unusual warmth Results Reviewed Results Reviewed: XR LUMBOSACRAL SPINE WITH OBLIQUES 01/11/24 CLINICAL INFORMATION: Acute bilateral low back pain with bilateral sciatica FINDINGS: Degenerative changes are present throughout the spine with some relative sparing at L3-L4 and L4-L5. Most marked disc space narrowing seen at L1-L2 and L5-S1 with vacuum phenomenon. There is a mild scoliosis convex to the left. No fractures or bony destructive lesions are seen. There are mild degenerative changes seen at the L4-L5 facet joints. IMPRESSION: Degenerative changes as described above. Assessment & Plan Assessment & Plan (1) Right shoulder pain: Code(s): M25.511 - Pain in right shoulder Category: Medical (2) Lower back pain: Code(s): M54.50 - Low back pain, unspecified Category: Medical (3) Right knee pain: Code(s): M25.561 - Pain in right knee Category: Medical (4) Lumbosacral spondylosis: Code(s): M47.817 - Spondylosis without myelopathy or radiculopathy, lumbosacral region Category: Medical (5) Lumbar degenerative disc disease: Code(s): M51.36 - Other intervertebral disc degeneration, lumbar region Category: Medical Plan Patient will proceed with formal physical therapy for right shoulder, right knee and low back pain. We reviewed recent lumbar spine xray findings as noted above. If no improvement with PT, will proceed with lumbar spine MRI. Back pain is mostly facet-mediated with discogenic pain components. Script provided for diclofenac topical cream for shoulder and knee pain. Continue Tylenol, muscle relaxant, ice/heat therapy, home exercise program, adequate hydration, and good posture. All questions and concerns have been answered and patienta agreed with the treatment plan. Follow up after PT and sooner as needed. Orders: Orders PT Evaluation and Treatment 02/09/24 M25.511 - Pain in right shoulder, M25.561 - Pain in right knee, M47.817 - Spondylosis without myelopathy or radiculopathy, lumbosacral region, M51.36 - Other intervertebral disc degeneration, lumbar region, M54.50 - Low back pain, unspecified Medications: New diclofenac sodium 1% (Arthritis Pain (diclofenac)) apply to single knee, ankle, foot; for foot includes sole/toes/top of foot 4 grams topical QID 100 grams 3RF pain M25.511 - Pain in right shoulder, M25.561 - Pain in right knee, M54.50 - Low back pain, unspecified Coding Level of Care Code New Pt Level 4 (30816) Diagnoses Right shoulder pain M25.511 Lower back pain M54.50 Right knee pain M25.561 Lumbosacral spondylosis M47.817 Lumbar degenerative disc disease M51.36
[2024-02-09 11:12] VITALS: BP 130/72; PULSE 78; RESP 16; O2SAT 99; BMI 27.2
== END 2024-02-09 11:41 | disposition home or self-care (01) ==
PROVIDERS: PCP Internal Medicine; Visit Provider Nurse Practitioner Family
DX: M25.511 Pain in right shoulder (principal); M54.50 Low back pain, unspecified; M25.561 Pain in right knee; M47.817 Spondylosis without myelopathy or radiculopathy, lumbosacral region; M51.36 Other intervertebral disc degeneration, lumbar region
CPT/HCPCS: 99204

== ENCOUNTER → 2024-02-09 11:06 | Outpatient (BNVA) | payer BC, SELFPAY | PROVIDERS: PCP Internal Medicine; Visit Provider Nurse Practitioner Family | DX: M25.511 Pain in right shoulder (principal); M54.50 Low back pain, unspecified; M25.561 Pain in right knee; M47.817 Spondylosis without myelopathy or radiculopathy, lumbosacral region; M51.36 Other intervertebral disc degeneration, lumbar region | CPT/HCPCS: 99202 ==

== ENCOUNTER 2024-05-16 11:13 | Outpatient (AMB) | payer MEDICARE, SELFPAY ==
--- NOTE | 2024-05-16 11:14 | MHC.OFFVIS ---
Vital Signs 05/16/24 11:19 Height 5 ft 2 in Weight 154 lb 8 oz BMI 28.3 BP 127/67 Blood Pressure Location Lt brachial Position Sitting Pulse 76 Pulse Source Pulse Oximeter Pulse Oximetry (%) 98 Oxygen Delivery Method Room Air Intake Visit Reasons: Low Back Pain Intake Note: Pain today 02/16 Computer Installer Required: Yes Computer Installer Language: Gyroscopic Engineering Technician Services: Computer Installer Present Computer Installer Name: Susan #[id number] Accompanied by: Self / Same As Patient Allergies lisinopril [LISINOPRIL] Allergy (Intermediate, Verified 05/16/24 11:20) HIVES HPI Comments Details: Patient presents for follow-up today to assess response to PT. machine tool mechanic was utilized during this encounter. Unfortunately patient has not started physical therapy as of yet and reports no one has contacted me. Patient continues to endorse axial low back pain with most movements and cold weather. She denies any radicular symptoms today. Patient reports she performs regular home exercise program and stretching exercises. She has been taking Tylenol Arthritis with minimal relief. When discussed interventional treatments, patient adamantly declined any injections. Patient is willing to pursue physical therapy. Denies any recent cough, cold, infection, fever, any significant changes in her medical history, medications or recent hospitalizations. PRIOR: Patient is a pleasant 68 years old Wallisian-speaking female with history of diabetes with chronic kidney disease, CAD, depression, left shoulder pain, chronic low back pain, presents today for initial evaluation of recurrent low back pain, right shoulder and right knee pain. 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 She states, back in November 2023, she assisted patient with lifting to transfer to wheelchair and felt sudden shooting pain in her lower back with radiation to bilateral lower extremities, worse on the right side. Initially she had numbness in the right lower extremities which she states has gotten better over the time. 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 Today she reports axial low back pain without radiation into her lower extremities. She reports chronic bilateral foot pain with numbness and tingling due to diabetic neuropathy. She reports anterior right knee pain and right shoulder pain due to arthritis. Recent lumbar spine x-ray showed degenerative changes that are present throughout the spine with some relative sparing at L3-L4 and L4-L5 and most marked disc space narrowing seen at L1-L2 and L5-S1 with vacuum phenomenon. To this point she has not tried any dedicated conservative treatment in the forms of physical therapy or injections. Patient is interested to pursue PT as initial steps. Denies any fever, chills, dizziness, chest pain, shortness of breath, abdominal or groin pain, weakness, foot drop, bladder or bowel dysfunction or saddle anesthesia. Oswestry Low Back Disability Score=9 (mild disability) Location: Lower back, right knee, right shoulder Duration: Chronic pain, worsening for the 2 months due to heavy lifting at work Characteristics of symptom or complaint: Aching, dull, tingling, numbness, sore, shooting, tightness Aggravating or associated factors: Movement, bending, supine rest, lifting, walking, twisting Relieving factors: Tizanidine, Tylenol, heat therapy, rest Treatment: Xrays, home stretching exercises PFSH Medical History Atherosclerotic cardiovascular disease Coronary artery disease Type II diabetes mellitus Vaginal intraepithelial neoplasia grade 1 Epigastric pain Anal pain Surgical History History of cardiac catheterization History of hysterectomy for benign disease Family History Father Diabetes Social History Household Members: Children Household Members Other:: 2 Housing: Apartment Do you presently have visiting nurse or other home services: No Alcohol intake: never Patient Tobacco Use Status: Never used Tobacco service: No Current occupational status: employed Female Reproductive History Menstrual Date of menopause: 05/10/01 Review of Systems Const All systems reviewed & are unremarkable except as noted in HPI and below Physical Exam Vital Signs: Last Vital Signs Pulse 76 05/16/24 11:19 BP 127/67 05/16/24 11:19 Pulse Ox 98 05/16/24 11:19 Oxygen Delivery Method Room Air 05/16/24 11:19 BMI result Body Mass Index 28.3 General: Appears afebrile. No acute distress. Alert and oriented. Mood and affect appropriate. Follows and participates in conversation appropriately. Respiratory effort is unlabored. No cough. Able to transition from sit to stand unassisted. Ambulates with bilaterally normal heel strike and toe off. General: Yes no CVA tenderness Back/Spine/Pelvis Back: no CVA tenderness Cervical Spine: cervical ROM normal, cervical muscular tenderness, No Cervical spine scars present and No Cervical spine tenderness Thoracic/Lumbar Spine: thoracic and lumbar spine normal to inspection, No Thoracic/lumbar spine scar(s), Lasegue's sign negative, straight leg raise negative bilaterally, pain with thoraco-lumbar ROM, paraspinal muscle tenderness, thoraco-lumbar ROM limited, No thoracic spinal tenderness and lumbar spinal tenderness (L4-S1) Pelvis: no buttock tenderness Sacroiliac joints: bilaterally nontender Extrem General: Yes capillary refill normal, Yes no clubbing, cyanosis or edema and Yes no calf tenderness Results Reviewed Results Reviewed: XR LUMBOSACRAL SPINE WITH OBLIQUES 01/11/24 CLINICAL INFORMATION: Acute bilateral low back pain with bilateral sciatica FINDINGS: Degenerative changes are present throughout the spine with some relative sparing at L3-L4 and L4-L5. Most marked disc space narrowing seen at L1-L2 and L5-S1 with vacuum phenomenon. There is a mild scoliosis convex to the left. No fractures or bony destructive lesions are seen. There are mild degenerative changes seen at the L4-L5 facet joints. IMPRESSION: Degenerative changes as described above. Assessment & Plan Assessment & Plan (1) Lower back pain: Code(s): M54.50 - Low back pain, unspecified Category: Medical (2) Lumbosacral spondylosis: Code(s): M47.817 - Spondylosis without myelopathy or radiculopathy, lumbosacral region Category: Medical (3) Lumbar degenerative disc disease: Code(s): M51.36 - Other intervertebral disc degeneration, lumbar region Category: Medical Plan Script re-submitted for physical therapy for low back pain. Back pain consistent with facet mediated pain and non-radiating. Patient declined interventional treatments, including diagnostic and therapeutic injections, neuromodulation and RFA procedures. Continue Tylenol, muscle relaxant, ice/heat therapy, home exercise program, adequate hydration, and good posture. All questions and concerns have been answered and patienta agreed with the treatment plan. Follow up as needed. Orders: Orders PT Evaluation and Treatment Today M47.817 - Spondylosis without myelopathy or radiculopathy, lumbosacral region, M51.36 - Other intervertebral disc degeneration, lumbar region, M54.50 - Low back pain, unspecified Medications: New lidocaine 5% 1 patch topical DAILY 30 days 30 ea 1RF pain M47.817 - Spondylosis without myelopathy or radiculopathy, lumbosacral region, M51.36 - Other intervertebral disc degeneration, lumbar region, M54.50 - Low back pain, unspecified Refilled diclofenac sodium 1% (Arthritis Pain (diclofenac)) apply to single knee, ankle, foot; for foot includes sole/toes/top of foot 4 grams topical QID 100 grams 3RF pain M25.511 - Pain in right shoulder, M25.561 - Pain in right knee, M54.50 - Low back pain, unspecified Coding Level of Care Code Est Pt Level 4 (79029) Diagnoses Lower back pain M54.50 Lumbosacral spondylosis M47.817 Lumbar degenerative disc disease M51.36
[2024-05-16 11:19] VITALS: BP 127/67; PULSE 76; O2SAT 98; BMI 28.3
== END 2024-05-16 11:37 | disposition home or self-care (01) ==
PROVIDERS: PCP Internal Medicine; Visit Provider Nurse Practitioner Family
DX: M54.50 Low back pain, unspecified (principal); M47.817 Spondylosis without myelopathy or radiculopathy, lumbosacral region
CPT/HCPCS: 99214

== ENCOUNTER → 2024-05-16 11:13 | Outpatient (BNVA) | payer MEDICARE, MEDICAID, SELFPAY | PROVIDERS: PCP Internal Medicine; Visit Provider Nurse Practitioner Family | DX: M54.50 Low back pain, unspecified (principal); M47.817 Spondylosis without myelopathy or radiculopathy, lumbosacral region; M51.369 Other intervertebral disc degeneration, lumbar region without mention of lumbar back pain or lower extremity pain | CPT/HCPCS: 99212 ==

== ENCOUNTER 2024-06-02 14:04 | Outpatient (AMB) | payer MEDICARE, MEDICAID, SELFPAY ==
--- NOTE | 2024-06-02 14:05 | A.OFFVIS_ITS ---
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 Pt states right LE cramping Accompanied by: Self / Same As Patient Allergies lisinopril [LISINOPRIL] Allergy (Intermediate, Verified 06/02/24 14:09) HIVES HPI HPI PATTERN GATER/HHC referral for VV: Details: Gabriella is presenting today as a referral from her primary care for ongoing varicose veins. Kat is interpreting today. She states that her bilateral lower legs have been hurting for approximately this full year she states her right leg hurts more than her left leg. She states she has concerns of a swollen area on her inner upper thigh which she has had for years; common however it has now become painful to palpation. It has not gotten any bigger. She has not seen anyone for it yet. She does note some spider veins over both legs. She does state she does get some swelling in her lower extremities. She has been elevating her legs but has not been using any compression stockings. She denies any history of PE or DVT. She denies any history of phlebitis. She is a nonsmoker. She is a diabetic and her most recent A1c is 8.8% on 05/03. She also has a history of hyperlipidemia, and is on a statin. She has chronic low back pain, which is managed by pain management. [facility] Medical History Atherosclerotic cardiovascular disease Coronary artery disease Type II diabetes mellitus Vaginal intraepithelial neoplasia grade 1 Epigastric pain Anal pain Surgical History History of cardiac catheterization History of hysterectomy for benign disease Family History Father Diabetes Social History Household Members: Children Household Members Other:: 2 Housing: Apartment Do you presently have visiting nurse or other home services: No Alcohol intake: never Patient Tobacco Use Status: Never used Tobacco service: No Current occupational status: employed Female Reproductive History Menstrual Date of menopause: 05/10/01 Review of Systems Const Reports as per HPI and Denies weakness ENT Reports Normal hearing present and Denies dizziness Card Reports as per HPI, Denies chest pain, Denies chest pain at rest, Denies chest pain with activity, Denies dyspnea and Denies dyspnea on exertion Resp Reports as per HPI, Denies cough, Denies dyspnea and Denies dyspnea on exertion GI Reports as per HPI, Denies abdominal pain, Denies nausea and Denies vomiting Musc Denies numbness Skin/Breast Reports as per HPI, Denies erythema and Denies wounds Neuro Reports Normal hearing present, Denies dizziness, Denies numbness, Denies Sensory deficit (Neuro) and Denies weakness Psych Reports no additional complaints Endo Reports no additional complaints Physical Exam Vital Signs: BMI result Body Mass Index 28.2 Const General: healthy appearing and no acute distress Orientation/consciousness: patient oriented x3 HEENT Head: Yes normal to inspection Ears: hearing grossly normal bilaterally Mouth: Normal oral and palatal mucosa present Resp Effort & Inspection: normal respiratory effort and able to speak in complete sentences Auscultation: clear to auscultation bilaterally Cardio Jugular venous distension: no JVD Rate: regular rate Rhythm: regular rhythm Heart sounds: S1 normal heart sound present and S2 normal heart sound present Bruits: no abdominal aortic bruits, no carotid bruits, no femoral bruits and no renal bruits Peripheral pulses: Peripheral pulses 2+ throughout GI Inspection: Yes normal to inspection Palpation (GI): No Abdominal aortic bruit present Skin Other: Spider veins noted throughout both bilateral lower extremities. Slight peripheral edema noted around both ankle Left upper thigh: Soft proximally [id number] round palpable area. Painful with deep palpation. Spider veins noted around the spot. CEAP: C - 3 E - primary A - superficial P - reflux General skin exam: no rashes or lesions noted Wounds: no wounds Hair: normal Neuro General: patient oriented x3 Cranial nerves: Yes Normal hearing present Cognition (Neuro): normal cognition Gait exam (Neuro): Normal gait present Motor exam (neuro): 5/5 motor strength present throughout Sensory Exam: No Sensory deficit (Neuro) Extrem General: Yes normal to inspection, Yes full ROM, Yes capillary refill normal and Yes normal gait Assessment & Plan Assessment & Plan (1) Varicose veins of both lower extremities with inflammation: Code(s): I83.11 - Varicose veins of right lower extremity with inflammation; I83.12 - Varicose veins of left lower extremity with inflammation Category: Medical Plan: Gabriella is presenting today as a referral from her PCP for ongoing right leg extremity pain. She states she has been having varicose veins for years but over the last year her right leg has been hurting more and the spider veins have been more prominent. She has been elevating her legs with minimal relief. In short, the patient has evidence of venous insufficiency. I have discussed the pathophysiology with the patient. In addition I have provided informational material regarding venous disease to the patient. We have discussed conservative measures including compression, elevation, and exercise. I have also provided a handout regarding appropriate use of compression stockings and where to purchase good compression stockings as well. I have taken the liberty of ordering venous insufficiency testing with the patient. They will follow up with me after testing. The patient had an opportunity to ask questions regarding the treatment plan. All questions were answered. No major barriers to understanding were identified. The patient expressed understanding and agreement with the above treatment plan. The patient is aware they should contact our office by phone for worsening of the current condition or the appearance of new symptoms. Thank you for allowing me to participate in the vascular care of this patient. If you have any questions or concerns regarding the treatment for the above condition please do not hesitate to contact me. The office telephone contact is [phone]. This note is constructed using voice recognition software. While every effort has been made to ensure accuracy, assistant case manager errors may have been included. Thank you for allowing me to participate in the care of your patient. Yours sincerely, LORY Peña Orders: Orders US venous duplex LE BI 1 Week I83.11 - Varicose veins of right lower extremity with inflammation, I83.12 - Varicose veins of left lower extremity with inflammation Coding Level of Care Code New Pt New Pt Level 4 (90533) Patient Type New Diagnoses Varicose veins of both lower extremities with inflammation I83.11; I83.12
[2024-06-02 14:07] VITALS: BMI 28.2
== END 2024-06-02 14:20 | disposition home or self-care (01) ==
PROVIDERS: PCP Internal Medicine; Visit Provider Physician Assistant Surgical
DX: I83.11 Varicose veins of right lower extremity with inflammation (principal); I83.12 Varicose veins of left lower extremity with inflammation
CPT/HCPCS: 99204

== ENCOUNTER → 2024-06-02 14:04 | Outpatient (BNVA) | payer MEDICARE, MEDICAID, SELFPAY | PROVIDERS: PCP Internal Medicine; Visit Provider Physician Assistant Surgical | DX: I83.11 Varicose veins of right lower extremity with inflammation (principal); I83.12 Varicose veins of left lower extremity with inflammation | CPT/HCPCS: 99202 ==

== ENCOUNTER 2024-07-04 12:31 | Outpatient (REF) | payer MEDICARE, MEDICAID, SELFPAY | END 2024-07-04 12:32 | disposition home or self-care (01) | LOC: HO.US 12:31 | PROVIDERS: PCP Internal Medicine; Visit Provider Physician Assistant Surgical | DX: I83.11 Varicose veins of right lower extremity with inflammation (principal); I83.12 Varicose veins of left lower extremity with inflammation | CPT/HCPCS: 93970 ==